=== PATIENT | female | born 1960 | race Caucasian/White ===

== ENCOUNTER 2019-05-25 09:33 | Inpatient (IN) | payer BC ==
[~2019-05-25 09:33] MED LIST: Bupivacaine 0.5%/EPINEPHrine 1:200,000 50 ML MDV ONE; Dexamethasone 4 MG/ML SDV ONE; Glycopyrrolate 0.2 MG/ML 5 ML MDV ONE; Meropenem 500 MG SDV ONE; Neostigmine Methylsulfate 1 MG/ML 5 ML Syringe ONE; Ondansetron 4 MG/2 ML SDV ONE; Propofol 200 MG/20 ML SDV ONE; Rocuronium 50 MG/5 ML Vial ONE; Succinylcholine 200 MG/10 ML MDV ONE; fentaNYL 250 MCG/5 ML SDV ONE
[2019-05-25] MEDS ORDERED: Celecoxib 200 MG Cap PO ONE (10:00)
[2019-05-25] MEDS ORDERED: Acetaminophen 500 MG Tab PO ONE (10:00)
[2019-05-25] MEDS ORDERED: Dextrose 5%-Lactated Ringers 1,000 ML IV SCH (10:15)
[2019-05-25] MEDS ORDERED: Scopolamine 1.5 MG Transdermal Patch TOP SCH (10:30)
[2019-05-25] MEDS ORDERED: Bupivacaine 0.5% 50 ML MDV ONE (10:54)
[2019-05-25] MEDS ORDERED: Lidocaine 1% with EPINEPHrine 1:100,000 50 ML MDV ONE (10:54)
[2019-05-25] MEDS ORDERED: cefOXitin 2 GM in Sodium Chloride 0.9% 50 ML IV ONE (11:00)
[2019-05-25] MEDS ORDERED: Ketamine 500 MG/5 ML MDV IV SCH (11:30)
[2019-05-25] MEDS ORDERED: Ketamine 50 MG in Sodium Chloride 0.9% 49.5 ML IV SCH (11:30)
[2019-05-25] MEDS ORDERED: Ropivacaine 28 ML, dexAMETHasone 8 MG, EPINEPHrine 0.4 MG, Sodium Chloride 0.9% 49.6 ML NERVRT SCH ×4 (11:30)
[2019-05-25] MEDS ORDERED: fentaNYL 100 MCG/2 ML SDV ONE (13:16)
[2019-05-25] MEDS ORDERED: diphenhydrAMINE 25 MG Cap PO PRN (14:05)
[2019-05-25] MEDS ORDERED: Ondansetron 4 MG/2 ML SDV IVPUSH PRN (14:05)
[2019-05-25] MEDS ORDERED: HYDROmorphone/Normal Saline 15 MG/30 ML PCA IV PRN (14:05)
[2019-05-25] MEDS ORDERED: diphenhydrAMINE 50 MG/ML SDV IVPUSH PRN ×2 (14:05→14:45)
[2019-05-25] MEDS ORDERED: Naloxone 0.4 MG/ML SDV IVPUSH PRN (14:05)
[2019-05-25] MEDS ORDERED: Naloxone 0.4 MG/ML SDV IV PRN (14:08)
[2019-05-25] MEDS ORDERED: Insulin Lispro 100 Unit/ML 3 ML KwikPen SUBCUT ONE (14:24)
[2019-05-25] MEDS ORDERED: 50% Dextrose in Water 50 ML Syringe IVPUSH PRN (14:45)
[2019-05-25] MEDS ORDERED: Pantoprazole 40 MG Vial IVPUSH SCH (14:45)
[2019-05-25] MEDS ORDERED: Glucagon,Human Recombinant 1 MG Vial IM PRN (14:45)
[2019-05-25] MEDS ORDERED: Labetalol 20 MG/4 ML Syringe IVPUSH PRN (14:45)
[2019-05-25] MEDS ORDERED: Acetaminophen 500 MG Tab PO PRN (14:45)
[2019-05-25] MEDS ORDERED: Cyclobenzaprine 10 MG Tab PO PRN (14:45)
[2019-05-25] MEDS ORDERED: hydrOXYzine HCL 100 MG/2 ML SDV IM PRN (14:45)
[2019-05-25] MEDS: Ondansetron 4 MG/2 ML SDV IVPUSH PRN ×2 (15:28→19:47)
[2019-05-25] MEDS: Metoclopramide 10 MG/2 ML SDV IVPUSH PRN ×2 (15:28→21:48)
[2019-05-25] MEDS ORDERED: Scopolamine 1.5 MG Transdermal Patch TRDERM PRN (15:45)
[2019-05-25] MEDS: Pantoprazole 40 MG Vial IVPUSH SCH (15:55)
[2019-05-25] MEDS: MVI, Adult with Vitamin K 10 ML, Thiamine 200 MG, Chromium/Copper/Mang/Selen/Zn 1 ML in... IV SCH ×4 (15:56)
[2019-05-25] MEDS: Insulin Lispro 100 Unit/ML 3 ML KwikPen SUBCUT PRN ×2 (16:56→22:08)
[2019-05-25] MEDS: Acetaminophen 500 MG Tab PO SCH (17:23)
[2019-05-25] MEDS: cefOXitin 2 GM in Sodium Chloride 0.9% 50 ML IV SCH (17:25)
[2019-05-25] MEDS ORDERED: Insulin Glargine,Human Rec. Analog 100 Units/ML 3 ML Pen SUBCUT ONE (21:00)
[2019-05-26] MEDS: Ondansetron 4 MG/2 ML SDV IVPUSH PRN ×4 (00:02→12:56)
[2019-05-26] MEDS: cefOXitin 2 GM in Sodium Chloride 0.9% 50 ML IV SCH ×5 (00:03→23:58)
[2019-05-26] MEDS: Lactated Ringers 1,000 ML IV SCH ×2 (03:46→16:38)
[2019-05-26] MEDS ORDERED: Iopamidol 612 MG/ML 50 ML SDV PO ONE (04:00)
[2019-05-26] MEDS: Acetaminophen 500 MG Tab PO SCH ×3 (04:16→17:39)
[2019-05-26] MEDS: Metoclopramide 10 MG/2 ML SDV IVPUSH PRN ×4 (04:19→21:42)
[2019-05-26] MEDS: Insulin Lispro 100 Unit/ML 3 ML KwikPen SUBCUT PRN ×4 (04:30→21:48)
--- NOTE | 2019-05-26 04:43 | CRLCR ---
Indication: Post bariatric surgery Technique: Two frontal images of the abdomen obtained immediately post ingestion of oral contrast in the 50 minutes delayed. Comparison: None Findings/Impression: On 0 minute image, contrast is seen layering in the distal stomach. A small amount of contrast is also noted in the distal esophagus. On 15 minute image, there is transit of some of the gastric contrast material into the duodenum and proximal jejunum. No extraluminal contrast is seen. Surgical drain is noted in the right lower quadrant. Dictated by Oanh Blevins MD @ May 26 2019 4:38AM Signed by Dr. Oanh Blevins @ May 26 2019 4:43AM
[2019-05-26] MEDS: Dextrose 5%-Lactated Ringers 1,000 ML IV SCH (06:23)
[2019-05-26] MEDS: Celecoxib 200 MG Cap PO SCH ×2 (08:31→21:44)
[2019-05-26] MEDS: Magnesium Sulfate/Water 2 GM in Premix Bag 1 BAG IV SCH ×3 (09:45→21:47)
[2019-05-26] MEDS: MVI, Adult with Vitamin K 10 ML, Thiamine 200 MG, Chromium/Copper/Mang/Selen/Zn 1 ML in... IV SCH ×4 (16:04)
[2019-05-26] MEDS: Pantoprazole 40 MG Vial IVPUSH SCH (16:05)
[2019-05-26] MEDS ORDERED: Insulin Glargine,Human Rec. Analog 100 Units/ML 3 ML Pen SUBCUT ONE (21:00)
[2019-05-27] MEDS: Acetaminophen 500 MG Tab PO SCH ×3 (02:59→17:01)
[2019-05-27] MEDS: Magnesium Sulfate/Water 2 GM in Premix Bag 1 BAG IV SCH ×3 (03:00→15:13)
[2019-05-27] MEDS: Lactated Ringers 1,000 ML IV SCH ×2 (04:55→15:12)
[2019-05-27] MEDS: Dextrose 5%-Lactated Ringers 1,000 ML IV SCH (04:56)
[2019-05-27] MEDS: cefOXitin 2 GM in Sodium Chloride 0.9% 50 ML IV SCH ×3 (05:01→17:00)
[2019-05-27] MEDS: Insulin Lispro 100 Unit/ML 3 ML KwikPen SUBCUT PRN ×4 (05:05→21:52)
[2019-05-27] MEDS ORDERED: Lidocaine 1% with EPINEPHrine 1:100,000 50 ML MDV ONE (07:12)
[2019-05-27] MEDS ORDERED: Meropenem 500 MG SDV ONE (07:12)
[2019-05-27] MEDS ORDERED: Bupivacaine 0.5% 50 ML MDV ONE (07:12)
[2019-05-27] MEDS ORDERED: Propofol 200 MG/20 ML SDV ONE (07:28)
[2019-05-27] MEDS ORDERED: fentaNYL 100 MCG/2 ML SDV ONE (07:28)
[2019-05-27] MEDS ORDERED: Ropivacaine 30 ML, dexAMETHasone 8 MG, EPINEPHrine 0.4 MG, Sodium Chloride 0.9% 47.6 ML NERVRT SCH ×4 (07:30)
[2019-05-27] MEDS ORDERED: oxyCODONE 5 MG Tab PO PRN (08:37)
[2019-05-27] MEDS ORDERED: Cyanocobalamin (Vitamin B12) 1,000 MCG/ML SDV IM ONE (09:00)
[2019-05-27] MEDS: Celecoxib 200 MG Cap PO SCH ×2 (09:49→21:49)
[2019-05-27] MEDS: Docusate Sodium 100 MG Cap PO SCH ×2 (09:49→20:19)
[2019-05-27] MEDS: Bisacodyl 5 MG Tab PO SCH ×2 (09:49→20:20)
[2019-05-27] MEDS: MVI, Adult with Vitamin K 10 ML, Thiamine 200 MG, Chromium/Copper/Mang/Selen/Zn 1 ML in... IV SCH ×4 (16:15)
[2019-05-27] MEDS ORDERED: Pantoprazole 40 MG Tab.CR PO SCH (17:00)
[2019-05-27] MEDS ORDERED: Insulin Glargine,Human Rec. Analog 100 Units/ML 3 ML Pen SUBCUT ONE (21:00)
[2019-05-27] MEDS ORDERED: Metoclopramide 10 MG Tab PO PRN (21:20)
[2019-05-27] MEDS ORDERED: diphenhydrAMINE 25 MG Cap PO PRN (21:20)
[2019-05-27] MEDS ORDERED: Ondansetron 4 MG Tab.DIS PO PRN (21:21)
[2019-05-28] MEDS: Acetaminophen 500 MG Tab PO SCH ×2 (06:28→09:02)
[2019-05-28] MEDS: Insulin Lispro 100 Unit/ML 3 ML KwikPen SUBCUT PRN (07:32)
[2019-05-28 07:41] VITALS: BP 117/63; PULSE 85
--- NOTE | 2019-05-28 07:51 | DISCH ---
ADMISSION DIAGNOSES: 1. Partial small bowel obstruction. 2. Type 1 diabetes with insulin therapy, controlled. DISCHARGE DIAGNOSES: 1. Exploratory laparotomy with lysis of adhesions: a. Resection of small bowel anastomosis involved in intussusception. b. Right colectomy. c. Excision of nodule over sigmoid colon. d. Placement of Interceed mesh for partial small bowel obstruction secondary to intussusception of the small bowel of previous anastomosis. 2. Cecal volvulus. 3. Peritoneal nodule 1 cm over sigmoid colon. Date of surgery: 05/25/2019. Surgeon: Patric Ji MD. 4. Delayed primary closure for open abdominal incision on 05/27/2019. Surgeon: Patric Ji MD. HISTORY: Nydia Faustin is a 59-year-old female who presented with a partial small bowel obstruction. After preoperative evaluation and discussion of possible risks and possible complications, she wished to proceed with surgical procedure. HOSPITAL COURSE: Nydia had her surgery on 05/25/2019 with delayed primary closure on 05/27/2019. She had no operative complications. Her pain was controlled. Activity was good. Vital signs were stable. She had multiple bowel movements on 05/27/2019. Nydia was able to be discharged to home on 05/28/2019 without any complications. PHYSICAL EXAMINATION: GENERAL: Nydia Faustin is a pleasant 59-year-old female. VITAL SIGNS: Height is 5 feet 1 inch, weight is 125 pounds. TPR on 05/27/2019 at 2238, 99.5; 86; 15; blood pressure 127/57. HEENT: Negative. NECK: Supple. HEART: Regular rate and rhythm. LUNGS: Clear. ABDOMEN: Aquacel dressing is intact. Abdominal binder is on. EXTREMITIES: Without peripheral edema. DISPOSITION: Discharged to home. CONDITION: Stable and improving. FOLLOWUP: Appointment with Rayna Rivas PA-C, on 06/05/2019 at 9:15 a.m. HOME MEDICATIONS: 1. Tylenol Extra Strength 1000 mg every 8 hours. 2. Celebrex 200 mg oral twice daily, #28. 3. Zofran ODT 4 mg oral q.4 hours p.r.n. nausea. 4. Oxycodone 5 mg every 6 hours p.r.n. pain, #28. 5. To resume taking insulin NovoLog 0 to 15 units subcu as directed and Basaglar 16 units subcu at bedtime. DIET: Usual diet as tolerated. Drink 8 to 10 glasses of water a day. ACTIVITY: No lifting over 10 pounds for 4 weeks. Other activity: Walk at least 6 times daily inside your house. No treadmill. Driving: Do not drive for 1 week and while on pain medication. Shower/bathing: May shower. DISCHARGE INSTRUCTIONS: Notify provider if any fever, increased pain, nausea, vomiting. Keep site clean and dry. Wear abdominal binder for 6 weeks and then as tolerated. Take off Aquacel dressing on , 05/31/2019. Special instructions: Use incentive spirometer 10 times every hour while awake for 1 week. Call Surgery Department if any problems or concerns at [phone].
[2019-05-28] MEDS: Docusate Sodium 100 MG Cap PO SCH (08:53)
[2019-05-28] MEDS: Bisacodyl 5 MG Tab PO SCH (08:53)
[2019-05-28] MEDS: Celecoxib 200 MG Cap PO SCH (08:54)
--- NOTE | 2019-05-28 11:48 | OR ---
DATE OF PROCEDURE: 05/27/2019 SURGEON: Patric Ji MD PREOPERATIVE DIAGNOSIS: Open abdominal incision. POSTOPERATIVE DIAGNOSIS: Open abdominal incision. OPERATIVE PROCEDURE: Delayed primary closure of open abdominal incision. ANESTHESIA: Local plus IV sedation. INDICATIONS FOR PROCEDURE: The patient is 48 hours status post open laparotomy with small bowel resection along with a right colectomy. At that time, it was felt that primary closure would be at high risk for a wound infection. Given this, the wound was packed open for a planned delayed primary closure at this time. Potential risks including bleeding and infection were reviewed, and the patient wishes to proceed. DETAILS OF PROCEDURE: The patient was taken to the operating room and placed in a semi- sitting position. IV sedation was administered, after which the operative dressing was taken down and found to be clean. The abdomen was then prepped and draped and the incision anesthetized with 1% lidocaine mixed with Marcaine. The incision was closed with a layer of 3-0 Vicryl stitch deep and then elizabeth for the skin. Bilateral transversus abdominis plane blocks were then placed using ultrasound guidance and dressing applied. The patient was taken to the recovery room in satisfactory condition. There were no evident complications. Patric Ji MD /[id number]
--- NOTE | 2019-05-28 12:24 | PN ---
DATE OF SERVICE: 05/27/2019 The patient has been clinically stable overnight. Blood sugars showing a little bit high. We will move her Lantus dose slightly up to 20 units from 16 units previously. Otherwise, she will be undergoing a delayed primary closure of the abdominal incision later today. We will restart a diet, and we will switch her over to oral oxycodone for pain medicine and begin some bowel stimulation. She may be ready for discharge home tomorrow. Patric Ji MD /[id number]
--- NOTE | 2019-05-28 13:18 | PN ---
DATE OF SERVICE: 05/26/2019 The patient is postop day #1 small bowel resection along with right colectomy for small bowel volvulus and intussusception of the previous small bowel anastomosis. Clinically, she has done well overnight with no major problems noted. Urine output has been satisfactory. Labs look fairly good this morning. Blood sugars, given the type 1 diabetes, are somewhat up and down, and we will move her Lantus insulin dose up to her usual 16 units tonight, and then we are more or less having her tell us what to do in terms of NovoLog coverage before the measured blood sugars. We will keep her just on sips of liquids for today. Plan is delayed primary closure tomorrow. She was somewhat nauseated last night, but upper GI x-ray was obtained, which showed fairly good gastric emptying and flow across the anastomosis of the small bowel, which is just beyond the ligament of Treitz. Otherwise, maximize activity, work with pulmonary toilet. We will soon switch her IV to simply LR at this point, and low magnesium level will be supplemented over the next 48 hours. Patric Ji MD /[id number]
--- NOTE | 2019-06-04 13:09 | OR ---
DATE OF PROCEDURE: 05/25/2019 SURGEON: Patric Ji MD PREOPERATIVE DIAGNOSIS: Partial small bowel obstruction. POSTOPERATIVE DIAGNOSES: 1. Partial small bowel obstruction secondary to intussusception at previous small bowel anastomosis. 2. Cecal volvulus. 3. Peritoneal nodule overlying the sigmoid colon. OPERATIVE PROCEDURE: Exploratory laparotomy with lysis of adhesions and: 1. Resection of small bowel anastomosis involving intussusception (05737). 2. Right colectomy (90534). 3. Excision of nodule overlying the sigmoid colon (61142). 4. Placement of Interceed mesh to limit recurrent adhesion formation between pelvic and abdominal wall and underlying viscera (07963). ANESTHESIA: General. PAPER BUNDLER: Rayna Rivas PA-C. INDICATIONS FOR PROCEDURE: The patient presents with a picture of intermittent small-bowel obstruction. Plan is to proceed with limited laparotomy and lysis of adhesions and/or bowel resection as indicated. Potential risks of the procedure including bleeding and leaks from GI tract closures, problems with recurrence of the bowel obstruction over time as well as possible recurrent cardiopulmonary, septic, or hemorrhagic complications leading to were all discussed, and the patient wishes to proceed. DETAILS OF PROCEDURE: The patient was taken to the operating room, and after general endotracheal anesthesia was induced, Jarquin catheter was inserted and the abdomen prepped and draped. Midline incision from the umbilicus roughly a handsbreadth toward the xiphoid was made and carried down through the full-thickness of the abdominal wall. Upon entering the peritoneal cavity, 3 significant findings were identified, one was very boggy enteroenterostomy likely related to intussusception was identified at previous small bowel anastomosis. The patient also had a cecal volvulus with cecum being rotated upward and into the left upper quadrant and quite distended partial small-bowel obstruction related to that. There is also a 1 cm firm nodule overlying the sigmoid colon more or less on one of its appendix epiploica. This was excised and sent for histologic evaluation. At that point, the decision was made to proceed with a right colectomy for cecal volvulus and resection of the small bowel anastomosis. At that point, the point where the Angela limb entered the small bowel anastomosis was divided and decided to leave that remaining anastomosis intact as it would only be carrying the biliopancreatic secretions. Secondary anastomosis was then accomplished roughly 20 cm distal to that point with a [id number] enteroenterostomy between the Angela limb and the small bowel with the 60 mm internal firing followed by 60 mm closure of the common opening. Angles anastomosed and reinforced with 3-0 Vicryl stitch and the mesenteric defect closed with some 2-0 silk stitch. The distal small bowel was then divided with MASON stapler as was the proximal transverse colon. The peritoneal reflection of the cecum, ascending colon, and transverse colon were then divided and those structures were mobilized medially with care taken to avoid injury to the underlying layer of duodenum. The mesentery between the 2 divided points was then divided with MASON staplers as well and specimen delivered from the field. The ileocolic anastomosis was then accomplished with 2 internal firings of 60 mm MASON elizabeth followed by closure of the common opening with MASON elizabeth as well. Angles anastomosed were reinforced with 3-0 Vicryl stitch and the mesenteric defect closed with some 2-0 silk stitch. At that point, no further problems were noted. The abdomen was irrigated with an antibiotic- containing saline solution. Interceed mesh was then placed across the area underlying the incision and then down toward the pelvis to limit the adhesion formation between the pelvic and abdominal wall. Midline fascia was then approximated with #2 Vicryl stitch, the subcutaneous tissue with 2 layers of 3-0 and 4-0 Vicryl stitch deep and elizabeth for the skin. Dressing was applied. The patient was taken to the recovery room in satisfactory condition. There were no evident complications. Physician assistant fitness manager, Rayna Rivas, played an essential role in assisting in this case, helping to position the patient, retract structures as needed, as well as suturing and cutting sutures when indicated. Her presence improved the patient's safety and decreased the operative time. Patric Ji MD /[id number]
== END 2019-05-28 09:50 | disposition home or self-care (01) | DRG 221 ==
LOC: JP.SDS 09:33 → JP.MS 14:30
PROVIDERS: ADMIT Surgery; ATTEND Surgery
PROC: 0DB80ZZ Excision of Small Intestine, Open Approach (ICD-10-PCS; principal; 2019-05-25)
PROC: 0DBF0ZZ Excision of Right Large Intestine, Open Approach (ICD-10-PCS; 2019-05-25)
PROC: 3E0M05Z Introduction of Adhesion Barrier into Peritoneal Cavity, Open Approach (ICD-10-PCS; 2019-05-25)
DX: K56.600 Partial intestinal obstruction, unspecified as to cause (principal); E10.9 Type 1 diabetes mellitus without complications; K56.2 Volvulus; K56.1 Intussusception
CPT/HCPCS: 36415; 74240; 80053; 82962; 83735; 83880; 84100; 85025; 88304; 88307; 94762; A9270-GY; C9113; J0171; J0330; J0694; J1100; J1170; J1790; J1815; J1815-GY; J2185; J2405; J2704; J2710; J2765; J2795; J3010; J3411; J3420; J3475; J3490; J7050; J7120; J7121; Q9967

== ENCOUNTER 2019-06-27 09:28 | Inpatient (IN) | payer BC ==
[2019-06-27] MEDS ORDERED: HYDROmorphone 0.5 MG/0.5 ML Syringe IVPUSH ONE (09:51)
[2019-06-27] MEDS ORDERED: Ondansetron 4 MG/2 ML SDV IVPUSH ONE (09:51)
[2019-06-27] MEDS ORDERED: Sodium Chloride 0.9% 1,000 ML IV SCH ×2 (10:00→12:15)
--- NOTE | 2019-06-27 10:00 | EDM.PDOC ---
ED HPI GENERAL MEDICAL PROBLEM - General Chief Complaint: Abdominal Pain Stated Complaint: POST-OP ISSUES Time Seen by Provider: 06/27/19 09:52 Source of Information: Reports: Patient History Limitations: Reports: No Limitations - History of Present Illness INITIAL COMMENTS - FREE TEXT/NARRATIVE: pt arrived with pain in her upper abdoman. She states it started last nite and was worse this am. She has not had a bm for 2 days. She is passing gas. She does not think she is distended. She is not vomiting but she has slight nausea. Onset: Gradual, Other ( started last nite. ) Duration: Hour(s): Location: Reports: Abdomen, Other (pt had surgery for a bowel obstruction on May 25. ) Associated Symptoms: Reports: Other (pt has not had a bm for 2 days. She is passing gas. ) Left Upper Abdominal Pain Score (Numeric/FACES): 5 - Related Data Allergies Allergy/AdvReac Type Severity Reaction Status Date / Time No Known Allergies Allergy Verified 05/23/19 15:38 Home Meds: Home Meds Insulin Aspart [NovoLOG] 0 - 15 unit SQ ASDIRECTED 08/26/13 [History] Insulin Glargine,Hum.Rec.Anlog [Basaglar Kwikpen U-100] 16 unit SQ BEDTIME 06/26 [History] Acetaminophen [Tylenol Extra Strength] 1,000 mg PO Q8H tablet 05/28/19 [Rx] Celecoxib [CeleBREX] 200 mg PO BID #28 cap 05/28/19 [Rx] Ondansetron [Zofran ODT] 4 mg PO Q4H PRN #30 tab.dis 05/28/19 [Rx] oxyCODONE 5 mg PO Q6H PRN #28 tablet 05/28/19 [Rx] Past Medical History HEENT History: Reports: Impaired Vision Respiratory History: Reports: Croup Gastrointestinal History: Reports: Bowel Obstruction Genitourinary History: Reports: None SAMPLE CARD MAKER History: Reports: Ectopic , , Spontaneous Musculoskeletal History: Reports: Fracture Other Musculoskeletal History: jaw Endocrine/Metabolic History: Reports: Diabetes, Type I, IDDM Dermatologic History: Reports: None - Infectious Disease History Infectious Disease History: Reports: Chicken Pox, Measles, Mumps, Shingles - Past Surgical History Head Surgeries/Procedures: Reports: None HEENT Surgical History: Reports: Oral Surgery, Other (See Below) Other HEENT Surgeries/Procedures: history of jaw fracture Cardiovascular Surgical History: Reports: None Respiratory Surgical History: Reports: None GI Surgical History: Reports: Appendectomy, Cholecystectomy, Colonoscopy, EGD, Lysis of Adhesions, Small Bowel, Other (See Below) Female Surgical History: Reports: Section, D&C, Hysterectomy, Salpingo-Oophorectomy, Tubal Ligation Musculoskeletal Surgical History: Reports: Other (See Below) Other Musculoskeletal Surgeries/Procedures:: history of left knee surgery as a young adult, meniscus repair secondary to gymnastic injury Social & Family History - Family History Family Medical History: Noncontributory - Caffeine Use Caffeine Use: Reports: Coffee ED ROS GENERAL - Review of Systems Review Of Systems: See Below Constitutional: Reports: No Symptoms HEENT: Reports: No Symptoms Respiratory: Reports: No Symptoms Cardiovascular: Reports: No Symptoms Endocrine: Reports: No Symptoms GI/Abdominal: Reports: Abdominal Pain, Constipation, Other (pt thinks she has not been drinking enough fluid. ) : Reports: No Symptoms Musculoskeletal: Reports: No Symptoms ED EXAM, GI/ABD - Physical Exam Exam: See Below Text/Narrative:: pt arrived with a inctrese in her pain in the upper abdoman. She is not vomiting. She has not had stools for 2 days and she is passing gas. Exam Limited By: No Limitations General Appearance: Alert, Anxious, Mild Distress Ears: Normal TMs Nose: Normal Inspection Throat/Mouth: Normal Inspection Head: Atraumatic Neck: Normal Inspection Respiratory/Chest: No Respiratory Distress Cardiovascular: Regular Rate, Rhythm GI/Abdominal Exam: Tender, Other (pt has tenderness in the upper abdoman and the upper portion of the incision. ) (Female) Exam: Deferred Rectal (Female) Exam: Deferred Back Exam: Normal Inspection Extremities: Normal Inspection Neurological: Alert, Oriented, Normal Cognition Psychiatric: Anxious Course - Vital Signs Last Recorded V/S: Last Vital Signs Temp 36.4 C 06/27/19 09:39 Pulse 88 06/27/19 09:39 Resp 18 06/27/19 09:39 BP 130/80 06/27/19 09:39 Pulse Ox - Orders/Labs/Meds Orders: Active Orders 24 hr Category Date Time Status Sodium Chloride 0.9% [Normal Saline] 1,000 ml Med 06/27/19 10:00 Active IV ASDIRECTED Sodium Chloride 0.9% [Normal Saline] 1,000 ml Med 06/27/19 12:15 Ordered IV ASDIRECTED Sodium Chloride 0.9% [Normal Saline] 70 ml Med 06/27/19 10:45 Active IV ASDIRECTED Sodium Chloride 0.9% [Saline Flush] Med 06/27/19 10:43 Active 10 ml FLUSH ONETIME PRN Medication Orders Sodium Chloride (Normal Saline) 1,000 mls @ 999 mls/hr IV ASDIRECTED DANNI Last Admin: 06/27/19 10:29 Dose: 999 mls/hr Sodium Chloride (Normal Saline) 70 mls @ 3 mls/sec IV ASDIRECTED DANNI Stop: 06/27/19 13:00 Last Admin: 06/27/19 10:56 Dose: 3 mls/sec Sodium Chloride (Saline Flush) 10 ml FLUSH ONETIME PRN PRN Reason: per radiology protocol Last Admin: 06/27/19 10:56 Dose: 10 ml Labs: Laboratory Tests 06/27/19 06/27/19 06/27/19 Range/Units 10:01 10:01 10:01 WBC 6.1 (4.5-11.0) K/uL RBC 4.14 (3.30-5.50) M/uL Hgb 11.9 L (12.0-15.0) g/dL Hct 36.8 (36.0-48.0) % MCV 89 (80-98) fL MCH 29 (27-31) pg MCHC 32 (32-36) % Plt Count 191 (150-400) K/uL Neut % (Auto) 57 (36-66) % Lymph % (Auto) 24 (24-44) % Ward % (Auto) 15 H (2-6) % Eos % (Auto) 5 H (2-4) % Baso % (Auto) 0 (0-1) % Sodium 139 L (140-148) mmol/L Potassium 4.5 (3.6-5.2) mmol/L Chloride 102 (100-108) mmol/L Carbon Dioxide 28 (21-32) mmol/L Anion Gap 13.5 (5.0-14.0) mmol/L BUN 17 D (7-18) mg/dL Creatinine 0.7 (0.6-1.0) mg/dL Est Cr Clr Drug Dosing 66.10 mL/min Estimated GFR (MDRD) > 60 (>60) Glucose 175 H (74-106) mg/dL Calcium 8.4 L (8.5-10.1) mg/dL Total Bilirubin 0.4 (0.2-1.0) mg/dL AST 18 (15-37) U/L ALT 28 (12-78) U/L Alkaline Phosphatase 94 (46-116) U/L C-Reactive Protein 0.39 H (0.0-0.3) mg/dL Total Protein 6.3 L (6.4-8.2) g/dL Albumin 3.1 L (3.4-5.0) g/dL Globulin 3.2 (2.3-3.5) g/dL Albumin/Globulin Ratio 1.0 L (1.2-2.2) Urine Color (YELLOW) Urine Appearance (CLEAR) Urine pH (5.0-8.0) Ur Specific [place] (1.008-1.030) Urine Protein (NEGATIVE) mg/dL Urine Glucose (UA) (NEGATIVE) mg/dL Urine Ketones (NEGATIVE) mg/dL Urine Occult Blood (NEGATIVE) Urine Nitrite (NEGATIVE) Urine Bilirubin (NEGATIVE) Urine Urobilinogen (0.2-1.0) EU/dL Ur Leukocyte Esterase (NEGATIVE) Urine RBC (0-5) Urine WBC (0-5) Ur Epithelial Cells Amorphous Sediment Urine Bacteria Urine Mucus 06/27/19 Range/Units 10:11 WBC (4.5-11.0) K/uL RBC (3.30-5.50) M/uL Hgb (12.0-15.0) g/dL Hct (36.0-48.0) % MCV (80-98) fL MCH (27-31) pg MCHC (32-36) % Plt Count (150-400) K/uL Neut % (Auto) (36-66) % Lymph % (Auto) (24-44) % Ward % (Auto) (2-6) % Eos % (Auto) (2-4) % Baso % (Auto) (0-1) % Sodium (140-148) mmol/L Potassium (3.6-5.2) mmol/L Chloride (100-108) mmol/L Carbon Dioxide (21-32) mmol/L Anion Gap (5.0-14.0) mmol/L BUN (7-18) mg/dL Creatinine (0.6-1.0) mg/dL Est Cr Clr Drug Dosing mL/min Estimated GFR (MDRD) (>60) Glucose (74-106) mg/dL Calcium (8.5-10.1) mg/dL Total Bilirubin (0.2-1.0) mg/dL AST (15-37) U/L ALT (12-78) U/L Alkaline Phosphatase (46-116) U/L C-Reactive Protein (0.0-0.3) mg/dL Total Protein (6.4-8.2) g/dL Albumin (3.4-5.0) g/dL Globulin (2.3-3.5) g/dL Albumin/Globulin Ratio (1.2-2.2) Urine Color Yellow (YELLOW) Urine Appearance Clear (CLEAR) Urine pH 5.5 (5.0-8.0) Ur Specific [place] >= 1.030 (1.008-1.030) Urine Protein Negative (NEGATIVE) mg/dL Urine Glucose (UA) Negative (NEGATIVE) mg/dL Urine Ketones Negative (NEGATIVE) mg/dL Urine Occult Blood Negative (NEGATIVE) Urine Nitrite Negative (NEGATIVE) Urine Bilirubin Negative (NEGATIVE) Urine Urobilinogen 0.2 (0.2-1.0) EU/dL Ur Leukocyte Esterase Negative (NEGATIVE) Urine RBC Not seen (0-5) Urine WBC Not seen (0-5) Ur Epithelial Cells Few Amorphous Sediment Few Urine Bacteria Not seen Urine Mucus Few Meds: Medications Generic Name Dose Route Start Last Admin Trade Name Freq PRN Reason Stop Dose Admin Sodium Chloride 1,000 mls @ 999 mls/hr 06/27/19 10:00 06/27/19 10:29 Normal Saline IV 999 mls/hr ASDIRECTED DANNI Administration Sodium Chloride 70 mls @ 3 mls/sec 06/27/19 10:45 06/27/19 10:56 Normal Saline IV 06/27/19 13:00 3 mls/sec ASDIRECTED DANNI Administration Sodium Chloride 10 ml 06/27/19 10:43 06/27/19 10:56 Saline Flush FLUSH 10 ml ONETIME PRN Administration per radiology protocol Discontinued Medications Generic Name Dose Route Start Last Admin Trade Name Freq PRN Reason Stop Dose Admin Hydromorphone HCl 0.5 mg 06/27/19 09:51 06/27/19 10:31 Dilaudid IVPUSH 06/27/19 09:52 0.5 mg ONETIME ONE Administration Iopamidol 84 ml 06/27/19 10:43 06/27/19 10:56 Isovue-300 (61%) IV 06/27/19 10:44 84 ml ONETIME ONE Administration Ondansetron HCl 4 mg 06/27/19 09:51 06/27/19 10:34 Zofran IVPUSH 06/27/19 09:52 4 mg ONETIME ONE Administration - Re-Assessments/Exams Free Text/Narrative Re-Assessment/Exam: 06/27/19 12:08 lab work looks good. She had a cat scan of the abdoman and there appeared to be some inflamationm of the abdomanal wall. There was no sign of obstruction Departure - Departure Time of Disposition: 12:10 Disposition: Admitted As Inpatient 67 Condition: Fair Clinical Impression: Abdominal wall asymmetry, Dehydration, Constipation - Discharge Information Referrals: Nitin Talavera MD [Primary Care Provider] - Forms: ED Department Discharge Care Plan Goals: admit to Dr García Sepsis Event Note - Evaluation Sepsis Screening Result: No Definite Risk - Focused Exam Vital Signs: Vital Signs Temp Pulse Resp BP 06/27/19 09:39 36.4 C 88 18 130/80 Date Exam was Performed: 06/27/19 Time Exam was Performed: 12:02 - My Orders Last 24 Hours: My Active Orders 06/27/19 10:00 Sodium Chloride 0.9% [Normal Saline] 1,000 ml IV ASDIRECTED 06/27/19 10:43 Sodium Chloride 0.9% [Saline Flush] 10 ml FLUSH ONETIME PRN 06/27/19 10:45 Sodium Chloride 0.9% [Normal Saline] 70 ml IV ASDIRECTED 06/27/19 12:15 Sodium Chloride 0.9% [Normal Saline] 1,000 ml IV ASDIRECTED - Assessment/Plan Last 24 Hours: My Active Orders 06/27/19 10:00 Sodium Chloride 0.9% [Normal Saline] 1,000 ml IV ASDIRECTED 06/27/19 10:43 Sodium Chloride 0.9% [Saline Flush] 10 ml FLUSH ONETIME PRN 06/27/19 10:45 Sodium Chloride 0.9% [Normal Saline] 70 ml IV ASDIRECTED 06/27/19 12:15 Sodium Chloride 0.9% [Normal Saline] 1,000 ml IV ASDIRECTED
[2019-06-27] MEDS ORDERED: Sodium Chloride 0.9% 10 ML Syringe FLUSH PRN ×2 (10:43→13:32)
[2019-06-27] MEDS ORDERED: Iopamidol 612 MG/ML 500 ML Multipack Bottle IV ONE (10:43)
--- NOTE | 2019-06-27 11:40 | CT ---
Abdomen Pelvis w Cont CLINICAL HISTORY: Abdominal pain COMPARISON: 05/08/2019. TECHNIQUE: Transverse scans were obtained from the base of the lungs to the pubic symphysis following oral contrast and IV infusion of contrast.Auto dosage reduction and iterative reconstructiontechniques employed. FINDINGS: The lung bases are clear. The liver shows some mild intrahepatic biliary dilatation. This is likely related to patient's prior cholecystectomy. There is slightly enlarged at 18 cm in length. The spleen has a normal size and shape. Patient has had recent to the revision of gastric bypass surgery. There is some thickening of the anterior abdominal wall and rectus sheath. There is some stranding in the subcutaneous fat in the periumbilical region. This may simply represent postoperative changes. Some hemorrhage or infection is not excluded. There are no fluid collections identified to suggest abscess or focal hematoma. The pancreas has a normal contour. The adrenal glands appear normal bilaterally . The kidneys show no mass, stones or hydronephrosis. The ureters have a normal course and caliber. Bladder has normal contour The aorta has a normal contour. There is no suspicious retroperitoneal adenopathy. There is moderate fecal retention. IMPRESSION: Recent abdominal surgery for gastric bypass revision Thickening of the abdominis rectus muscle bilaterally. This may be postoperative changes but some hemorrhage or inflammation is not excluded. Abscess is not identified. Moderate fecal retention
--- NOTE | 2019-06-27 12:43 | PCM.HP.2 ---
H&P History of Present Illness - General Date of Service: 06/27/19 Admit Problem/Dx: Admission Diagnosis/Problem Admission Diagnosis/Problem Infection of skin Source of Information: Patient, Family, Provider, RN Notes Reviewed History Limitations: Reports: No Limitations - History of Present Illness Initial Comments - Free Text/Narative: Ms. Faustin is a 59-year-old woman who was admitted through the emergency department for further evaluation and management of abdominal pain and inflammation in the abdominal wall following surgery 1 month ago. With the initial surgery she was felt to have a bowel obstruction and did undergo partial resection of small bowel as well as large bowel. She had been doing well during the postoperative period until she developed increased abdominal pain in the left abdomen yesterday. Pain seems to be unrelated to eating but is associated with nausea. She has had no fevers, chills, or sweats. No vomiting or diarrhea. The skin of the abdomen pelvis showed possible inflammation of both abdominal rectus muscles, no obvious abscess. White blood cell count is within normal range. Left Upper Abdominal Pain Score (Numeric/FACES): 5 - Related Data Allergies/Adverse Reactions: Allergies Allergy/AdvReac Type Severity Reaction Status Date / Time No Known Allergies Allergy Verified 05/23/19 15:38 Home Medications: Home Meds Insulin Aspart [NovoLOG] 0 - 15 unit SQ ASDIRECTED 08/26/13 [History] Insulin Glargine,Hum.Rec.Anlog [Basaglar Kwikpen U-100] 16 unit SQ BEDTIME 06/26 [History] Acetaminophen [Tylenol Extra Strength] 1,000 mg PO Q8H tablet 05/28/19 [Rx] Celecoxib [CeleBREX] 200 mg PO BID #28 cap 05/28/19 [Rx] Ondansetron [Zofran ODT] 4 mg PO Q4H PRN #30 tab.dis 05/28/19 [Rx] oxyCODONE 5 mg PO Q6H PRN #28 tablet 05/28/19 [Rx] Past Medical History HEENT History: Reports: Impaired Vision Respiratory History: Reports: Croup Gastrointestinal History: Reports: Bowel Obstruction Genitourinary History: Reports: None [employer] History: Reports: Ectopic , , Spontaneous Musculoskeletal History: Reports: Fracture Other Musculoskeletal History: jaw Endocrine/Metabolic History: Reports: Diabetes, Type I, IDDM Dermatologic History: Reports: None - Infectious Disease History Infectious Disease History: Reports: Chicken Pox, Measles, Mumps, Shingles - Past Surgical History Head Surgeries/Procedures: Reports: None HEENT Surgical History: Reports: Oral Surgery, Other (See Below) Other HEENT Surgeries/Procedures: history of jaw fracture Cardiovascular Surgical History: Reports: None Respiratory Surgical History: Reports: None GI Surgical History: Reports: Appendectomy, Cholecystectomy, Colonoscopy, EGD, Lysis of Adhesions, Small Bowel, Other (See Below) Female Surgical History: Reports: Section, D&C, Hysterectomy, Salpingo-Oophorectomy, Tubal Ligation Musculoskeletal Surgical History: Reports: Other (See Below) Other Musculoskeletal Surgeries/Procedures:: history of left knee surgery as a young adult, meniscus repair secondary to gymnastic injury Social & Family History - Family History Family Medical History: Noncontributory - Tobacco Use Smoking Status *Q: Never Smoker - Caffeine Use Caffeine Use: Reports: Coffee - Recreational Drug Use Recreational Drug Use: No H&P Review of Systems - Review of Systems: Review Of Systems: See Below General: Reports: Decreased Appetite. Denies: Fever, Chills, Malaise, Weakness HEENT: Reports: No Symptoms Pulmonary: Reports: No Symptoms Cardiovascular: Reports: No Symptoms Gastrointestinal: Reports: Abdominal Pain, Decreased Appetite, Nausea. Denies: Diarrhea, Difficulty Swallowing, Distension, Hematemesis, Hematochezia, Melena, Vomiting Genitourinary: Reports: No Symptoms Musculoskeletal: Reports: No Symptoms Skin: Reports: No Symptoms Psychiatric: Reports: No Symptoms Neurological: Reports: No Symptoms Hematologic/Lymphatic: Reports: No Symptoms Immunologic: Reports: No Symptoms Exam - Exam Exam: See Below - Vital Signs Vital Signs: Last Vital Signs Temp 97.6 F 06/27/19 09:39 Pulse 75 06/27/19 12:26 Resp 18 06/27/19 12:26 BP 112/74 06/27/19 12:26 Pulse Ox 95 06/27/19 12:26 Weight: 123 lb 7.342 oz - Exam Quality Assessment: Supplemental Oxygen, DVT Prophylaxis General: Alert, Oriented, Cooperative, Mild Distress HEENT: Conjunctiva Clear, Hearing Intact, Mucosa Moist & [place], Normal Nasal Septum, Posterior Pharynx Clear, Pupils Equal Neck: Supple, Trachea Midline, +2 Carotid Pulse wo Bruit Lungs: Clear to Auscultation, Normal Respiratory Effort Cardiovascular: Regular Rate, Regular Rhythm, Normal S1, Normal S2. No: Systolic Murmur, Diastolic Murmur GI/Abdominal Exam: Soft, Non-Tender, No Organomegaly, No Distention Back Exam: Normal Inspection, Full Range of Motion Extremities: Non-Tender, No Pedal Edema Skin: Warm, Dry, Intact Neurological: Cranial Nerves Intact, Strength Equal Bilateral, Normal Speech, Normal Tone, Sensation Intact. No: Focal Deficit Neuro Extensive - Mental Status: Alert, Oriented x3, Normal Mood/Affect, Normal Cognition, Memory Intact - Patient Data Lab Results Last 24 hrs: Laboratory Results - last 24 hr 06/27/19 06/27/19 06/27/19 Range/Units 10:01 10:01 10:01 WBC 6.1 (4.5-11.0) K/uL RBC 4.14 (3.30-5.50) M/uL Hgb 11.9 L (12.0-15.0) g/dL Hct 36.8 (36.0-48.0) % MCV 89 (80-98) fL MCH 29 (27-31) pg MCHC 32 (32-36) % Plt Count 191 (150-400) K/uL Neut % (Auto) 57 (36-66) % Lymph % (Auto) 24 (24-44) % [place] % (Auto) 15 H (2-6) % Eos % (Auto) 5 H (2-4) % Baso % (Auto) 0 (0-1) % Sodium 139 L (140-148) mmol/L Potassium 4.5 (3.6-5.2) mmol/L Chloride 102 (100-108) mmol/L Carbon Dioxide 28 (21-32) mmol/L Anion Gap 13.5 (5.0-14.0) mmol/L BUN 17 D (7-18) mg/dL Creatinine 0.7 (0.6-1.0) mg/dL Est Cr Clr Drug Dosing 66.10 mL/min Estimated GFR (MDRD) > 60 (>60) Glucose 175 H (74-106) mg/dL Calcium 8.4 L (8.5-10.1) mg/dL Total Bilirubin 0.4 (0.2-1.0) mg/dL AST 18 (15-37) U/L ALT 28 (12-78) U/L Alkaline Phosphatase 94 (46-116) U/L C-Reactive Protein 0.39 H (0.0-0.3) mg/dL Total Protein 6.3 L (6.4-8.2) g/dL Albumin 3.1 L (3.4-5.0) g/dL Globulin 3.2 (2.3-3.5) g/dL Albumin/Globulin Ratio 1.0 L (1.2-2.2) Urine Color (YELLOW) Urine Appearance (CLEAR) Urine pH (5.0-8.0) Ur Specific [place] (1.008-1.030) Urine Protein (NEGATIVE) mg/dL Urine Glucose (UA) (NEGATIVE) mg/dL Urine Ketones (NEGATIVE) mg/dL Urine Occult Blood (NEGATIVE) Urine Nitrite (NEGATIVE) Urine Bilirubin (NEGATIVE) Urine Urobilinogen (0.2-1.0) EU/dL Ur Leukocyte Esterase (NEGATIVE) Urine RBC (0-5) Urine WBC (0-5) Ur Epithelial Cells Amorphous Sediment Urine Bacteria Urine Mucus 06/27/19 Range/Units 10:11 WBC (4.5-11.0) K/uL RBC (3.30-5.50) M/uL Hgb (12.0-15.0) g/dL Hct (36.0-48.0) % MCV (80-98) fL MCH (27-31) pg MCHC (32-36) % Plt Count (150-400) K/uL Neut % (Auto) (36-66) % Lymph % (Auto) (24-44) % [place] % (Auto) (2-6) % Eos % (Auto) (2-4) % Baso % (Auto) (0-1) % Sodium (140-148) mmol/L Potassium (3.6-5.2) mmol/L Chloride (100-108) mmol/L Carbon Dioxide (21-32) mmol/L Anion Gap (5.0-14.0) mmol/L BUN (7-18) mg/dL Creatinine (0.6-1.0) mg/dL Est Cr Clr Drug Dosing mL/min Estimated GFR (MDRD) (>60) Glucose (74-106) mg/dL Calcium (8.5-10.1) mg/dL Total Bilirubin (0.2-1.0) mg/dL AST (15-37) U/L ALT (12-78) U/L Alkaline Phosphatase (46-116) U/L C-Reactive Protein (0.0-0.3) mg/dL Total Protein (6.4-8.2) g/dL Albumin (3.4-5.0) g/dL Globulin (2.3-3.5) g/dL Albumin/Globulin Ratio (1.2-2.2) Urine Color Yellow (YELLOW) Urine Appearance Clear (CLEAR) Urine pH 5.5 (5.0-8.0) Ur Specific [place] >= 1.030 (1.008-1.030) Urine Protein Negative (NEGATIVE) mg/dL Urine Glucose (UA) Negative (NEGATIVE) mg/dL Urine Ketones Negative (NEGATIVE) mg/dL Urine Occult Blood Negative (NEGATIVE) Urine Nitrite Negative (NEGATIVE) Urine Bilirubin Negative (NEGATIVE) Urine Urobilinogen 0.2 (0.2-1.0) EU/dL Ur Leukocyte Esterase Negative (NEGATIVE) Urine RBC Not seen (0-5) Urine WBC Not seen (0-5) Ur Epithelial Cells Few Amorphous Sediment Few Urine Bacteria Not seen Urine Mucus Few Result Diagrams: 06/27/19 10:01 06/27/19 10:01 Sepsis Event Note - Evaluation Sepsis Screening Result: No Definite Risk - Focused Exam Vital Signs: Vital Signs Temp Pulse Resp BP Pulse Ox 06/27/19 12:26 75 18 112/74 95 06/27/19 09:39 97.6 F 88 18 130/80 Date Exam was Performed: 06/27/19 Time Exam was Performed: 13:02 *Q Meaningful Use (ADM) - VTE Risk Assess *Q Each Risk Factor Represents 1 Point: Age 41 - 59 years Total Score 1 Point Risk Factors: 1 Each Risk Factor Represents 2 Points: None Total Score 2 Point Risk Factors: 0 Each Risk Factor Represents 3 Points: None Total Score 3 Point Risk Factors: 0 Each Risk Factor Represents 5 Points: None Total Score 5 Point Risk Factors: 0 Venous Thromboembolism Risk Factor Score *Q: 1 Problem List Initiated/Reviewed/Updated: Yes Orders Last 24hrs: Active Orders 24 hr Category Date Time Status Patient Status Manage Transfer [TRANSFER] Routine ADT 06/27/19 12:35 Ordered Sodium Chloride 0.9% [Normal Saline] 1,000 ml Med 06/27/19 10:00 Active IV ASDIRECTED Sodium Chloride 0.9% [Normal Saline] 1,000 ml Med 06/27/19 12:15 Active IV ASDIRECTED Sodium Chloride 0.9% [Normal Saline] 70 ml Med 06/27/19 10:45 Active IV ASDIRECTED Sodium Chloride 0.9% [Saline Flush] Med 06/27/19 10:43 Active 10 ml FLUSH ONETIME PRN Resuscitation Status Routine Resus Stat 06/27/19 12:37 Ordered Medication Orders Sodium Chloride (Normal Saline) 1,000 mls @ 999 mls/hr IV ASDIRECTED [facility] Last Admin: 06/27/19 10:29 Dose: 999 mls/hr Sodium Chloride (Normal Saline) 70 mls @ 3 mls/sec IV ASDIRECTED [facility] Stop: 06/27/19 13:00 Last Admin: 06/27/19 10:56 Dose: 3 mls/sec Sodium Chloride (Normal Saline) 1,000 mls @ 250 mls/hr IV ASDIRECTED [facility] Last Admin: 06/27/19 11:55 Dose: 250 mls/hr Sodium Chloride (Saline Flush) 10 ml FLUSH ONETIME PRN PRN Reason: per radiology protocol Last Admin: 06/27/19 10:56 Dose: 10 ml Assessment/Plan Comment:: ASSESSMENT AND PLAN ABDOMINAL PAIN/ABDOMINAL WALL INFLAMMATION-been doing well after surgery 1 month ago when she developed more acute intense pain in the left abdomen. CT scan shows no intra-abdominal abnormality to explain pain. There is some evidence of inflammation in the abdominal wall but no obvious abscess or hematoma. -Consult Dr. Ji in a.m. to assume care -Fluids for hydration -Blood cultures -Empiric IV antibiotic therapy with vancomycin and Zosyn TYPE 1 DIABETES MELLITUS -Continue usual dose of Lantus insulin -4 times daily glucometers -Moderate dose sliding scale Humalog MAINTENANCE ISSUES -DVT prophylaxis; SCUDs -GI prophylaxis; not indicated -Jarquin catheter; not indicated -Nutrition; consistent carb diet -Nicotine dependence; not required CODE STATUS-FULL CODE ADMISSION STATUS-patient will be admitted to inpatient status, expect at least a 2 night hospital stay for evaluation and management of problems as outlined above. At the time of this admission I do not reasonably expected evaluation and management of this problem will require more than a 96 hour hospital stay. DISPOSITION-anticipate discharge to home after the hospital stay. PRIMARY CARE PROVIDER-Drs. Talavera - Mortality Measure Prognosis:: Good
[2019-06-27] MEDS ORDERED: oxyCODONE 5 MG Tab PO PRN (13:32)
[2019-06-27] MEDS ORDERED: 50% Dextrose in Water 50 ML Syringe IV PRN (13:32)
[2019-06-27] MEDS ORDERED: Ondansetron 4 MG Tab.DIS PO PRN (13:32)
[2019-06-27] MEDS ORDERED: Polyethylene Glycol 3350 Powder 17 GM Packet PO PRN (13:32)
[2019-06-27] MEDS ORDERED: Glucose Gel 15 GM in 37.5 GM Tube PO PRN (13:32)
[2019-06-27] MEDS ORDERED: Ondansetron 4 MG/2 ML SDV IV PRN (13:32)
[2019-06-27] MEDS ORDERED: Vancomycin 1 GM SDV IV SCH (13:32)
[2019-06-27] MEDS ORDERED: Acetaminophen 325 MG Tab PO PRN (13:32)
[2019-06-27] MEDS ORDERED: Albuterol 0.083% 2.5 MG/3 ML Neb Soln NEB PRN (13:32)
[2019-06-27] MEDS: Lactated Ringers 1,000 ML IV SCH (13:55)
[2019-06-27] MEDS: Piperacillin/Tazobactam/Dext 3.375 GM in Premix Bag 1 BAG IV SCH ×2 (14:29→19:37)
[2019-06-27] MEDS: Insulin Lispro 100 Unit/ML 3 ML KwikPen SUBCUT SCH ×2 (17:03→21:56)
[2019-06-27] MEDS ORDERED: Insulin Glargine,Human Rec. Analog 100 Units/ML 3 ML Pen SUBCUT SCH (21:00)
[2019-06-28] MEDS: Lactated Ringers 1,000 ML IV SCH (00:32)
[2019-06-28] MEDS: Piperacillin/Tazobactam/Dext 3.375 GM in Premix Bag 1 BAG IV SCH ×4 (02:56→19:39)
[2019-06-28] MEDS ORDERED: Dextrose 5%-Lactated Ringers 1,000 ML IV SCH (05:30)
[2019-06-28] MEDS: Insulin Lispro 100 Unit/ML 3 ML KwikPen SUBCUT SCH ×4 (07:35→21:17)
--- NOTE | 2019-06-28 08:46 | CONS ---
DATE OF SERVICE: 06/28/2019 REFERRING PHYSICIAN: CONSULTING PHYSICIAN: Rayna Rivas PA-C HISTORY OF PRESENT ILLNESS: Nydia had an exploratory laparotomy with lysis of adhesions, resection of small bowel anastomosis involved in intussusception, right colectomy, excision of nodule over sigmoid colon and placement of Interceed mesh for cecal small-bowel obstruction secondary to intussusception of the small bowel, previous anastomosis. She had a cecal volvulus, peritoneal nodule 1 cm over the sigmoid colon. Date of surgery was 05/25/2019. Surgeon: Patric Ji MD. Delayed primary closure for open incision was on 05/27/2019. Nydia had a normal postop progression until 06/26/2019. She developed pain to the left of her mid incision. She felt like the area was hard, painful to touch and felt warm. Pain is aggravated by movement or palpation. Eating and drinking have been going well. Bowel movement was a couple of days ago. She states that she has no other associated signs or symptoms. ALLERGIES: NO KNOWN MEDICAL ALLERGIES. PAST MEDICAL HISTORY: Includes ectopic ; diabetes type 1, insulin-dependent diabetes; and several bowel obstructions. PAST SURGICAL PROCEDURES: Include her most recent as noted above, appendectomy, cholecystectomy, lysis of adhesions of small bowel, , hysterectomy, salpingo- oophorectomy, tubal ligation, and left knee surgery with meniscus repair. MEDICATIONS: NovoLog 0 to 15 units subcu as directed; Basaglar U-100, 16 units subcu at bedtime; acetaminophen 1000 mg every 8 hours; Zofran 4 mg sublingual every 4 hours p.r.n. nausea. FAMILY HISTORY: Negative for any heart, lung, diabetes, cancer, or anesthesia problems. SOCIAL HISTORY: . Works at a local [employer]. Does not smoke or drink alcohol. No recreational drugs. Does drink coffee. REVIEW OF SYSTEMS: CONSTITUTIONAL: Reports decreased appetite, but that has improved. She does not think it has anything to do with the pain she is having now. No fever, chills, night sweats, or fatigue. HEENT: Negative for any upper respiratory infections, ear pain, or sore throat. LUNGS: No shortness of breath or cough. CARDIOVASCULAR: No chest pain, fast irregular heart beat. GENITOURINARY: Negative for any urinary tract infection signs and symptoms. MUSCULOSKELETAL: No joint pain or swelling. SKIN: No rash, changes in moles. PSYCHIATRIC: Negative for depression, anxiety. NEUROLOGIC: No headaches, dizziness, loss of coordination. Remainder of review of systems negative for any pertinent positives and negatives. OBJECTIVE: GENERAL: Nydia Faustin is a pleasant 59-year-old female. VITAL SIGNS: Height is 5 feet 1 inch, weight is 127 pounds, BMI is 24. TPR at 07:42, 96.6; 82; 16; blood pressure 118/74. HEENT: Negative. NECK: Supple. HEART: Regular rate and rhythm. LUNGS: Clear. ABDOMEN: Well-healed midline incision. Tenderness is noted superficially to the left of the mid incision. Area is about 4 inches x 4 inches. Little bit tenderness is noted laterally as well as her right mid to upper abdominal quadrant. There is no redness, warmth. Difficult to appreciate any firmness other than what would be expected from scar tissue. EXTREMITIES: Without peripheral edema. SKIN: Without rash. PSYCHIATRIC: Mood and affect appropriate. ASSESSMENT: 1. Abdominal wall pain/abdominal wall inflammation. 2. Diabetes mellitus type 1, low blood sugar this morning of 34. PLAN: Check ultrasound limited of abdomen. Continue Zosyn, vancomycin. Regular consistent carb diet. Ultrasound results to be called. We will evaluate p.r.n. or in a.m. Thank you for this consultation. Rayna Rivas PA-C /[phone]
--- NOTE | 2019-06-28 10:06 | US ---
Abdomen Ltd CLINICAL HISTORY: Abdominal pain postsurgery FINDINGS: Real-time images were obtained through the epigastric region to evaluate the abdominal wall. No fluid collections are identified. There is some thickening of the rectus sheath as was described on the recent CT near the previous surgical incision IMPRESSION: Rectus sheath thickening No abscess formation identified
--- NOTE | 2019-06-28 13:01 | PCM.PN ---
- General Info Date of Service: 06/28/19 Subjective Update: Ms. Faustin continues to experience abdominal pain, no significant improvement from admission but it also has not progressed. Vital signs have been stable and she has remained afebrile. She did eat last night and noted no change in her pain with oral intake. She has been seen and evaluated by Mrs. Rivas this morning, limited ultrasound was unremarkable. Functional Status: Reports: Tolerating Diet, Ambulating, Urinating - Review of Systems General: Reports: No Symptoms Pulmonary: Reports: No Symptoms Cardiovascular: Reports: No Symptoms Gastrointestinal: Reports: Abdominal Pain, Decreased Appetite, Nausea. Denies: Diarrhea, Difficulty Swallowing, Vomiting - Patient Data Vitals - Most Recent: Last Vital Signs Temp 97.5 F 06/28/19 10:54 Pulse 76 06/28/19 10:54 Resp 16 06/28/19 10:54 BP 130/62 06/28/19 10:54 Pulse Ox 97 06/28/19 10:54 Weight - Most Recent: 127 lb I&O - Last 24 Hours: Intake & Output 06/27/19 06/28/19 06/28/19 22:59 06:59 14:59 Intake Total 1850 1502 50 Balance 1850 1502 50 Lab Results Last 24 Hours: Laboratory Results - last 24 hr 06/28/19 06/28/19 Range/Units 04:55 04:55 WBC 5.6 (4.5-11.0) K/uL RBC 3.91 (3.30-5.50) M/uL Hgb 10.7 L (12.0-15.0) g/dL Hct 35.0 L (36.0-48.0) % MCV 90 (80-98) fL MCH 27 (27-31) pg MCHC 31 L (32-36) % Plt Count 181 (150-400) K/uL Neut % (Auto) 56 (36-66) % Lymph % (Auto) 23 L (24-44) % [place] % (Auto) 16 H (2-6) % Eos % (Auto) 5 H (2-4) % Baso % (Auto) 0 (0-1) % Sodium 144 (140-148) mmol/L Potassium 3.8 (3.6-5.2) mmol/L Chloride 107 (100-108) mmol/L Carbon Dioxide 28 (21-32) mmol/L Anion Gap 9.2 (5.0-14.0) mmol/L BUN 12 (7-18) mg/dL Creatinine 0.6 (0.6-1.0) mg/dL Est Cr Clr Drug Dosing 77.12 mL/min Estimated GFR (MDRD) > 60 (>60) Glucose 38 L* (74-106) mg/dL Calcium 8.0 L (8.5-10.1) mg/dL Magnesium 1.9 (1.8-2.4) mg/dL Med Orders - Current: Current Medications Acetaminophen (Tylenol) 650 mg PO Q4H PRN PRN Reason: Pain (Mild 1-3)/fever Albuterol (Proventil Neb Soln) 2.5 mg NEB Q4H PRN PRN Reason: Shortness Of Breath/wheezing Dextrose (Glutose 15) 15 gm PO ONETIME PRN PRN Reason: Hypoglycemia Dextrose/Water (Dextrose 50% In Water) 50 ml IV ONETIME PRN PRN Reason: Hypoglycemia Last Admin: 06/28/19 05:27 Dose: 50 ml Piperacillin/Tazobactam/ (Dextrose 3.375 gm/ Premix) 50 mls @ 100 mls/hr IV Q6H [facility] Last Admin: 06/28/19 09:03 Dose: 100 mls/hr Vancomycin HCl 1 gm/ Sodium (Chloride) 250 mls @ 170 mls/hr IV Q12H [facility] Last Admin: 06/28/19 03:45 Dose: 170 mls/hr Insulin Glargine (Lantus Solostar) 12 units SUBCUT BEDTIME [facility] Insulin Human Lispro (Humalog) 0 unit SUBCUT QIDACANDBED [facility]; Protocol Last Admin: 06/28/19 11:48 Dose: 4 units Ondansetron HCl (Zofran Odt) 4 mg PO Q4H PRN PRN Reason: Nausea/Vomiting Ondansetron HCl (Zofran) 4 mg IV Q4H PRN PRN Reason: Nausea/Vomiting Oxycodone HCl (Oxycodone) 5 mg PO Q4H PRN PRN Reason: PAIN Polyethylene Glycol (Miralax) 17 gm PO DAILY PRN PRN Reason: Constipation Sodium Chloride (Saline Flush) 10 ml FLUSH ASDIRECTED PRN PRN Reason: Keep Vein Open Discontinued Medications Hydromorphone HCl (Dilaudid) 0.5 mg IVPUSH ONETIME ONE Stop: 06/27/19 09:52 Last Admin: 06/27/19 10:31 Dose: 0.5 mg Sodium Chloride (Normal Saline) 1,000 mls @ 999 mls/hr IV ASDIRECTED [facility] Last Admin: 06/27/19 10:29 Dose: 999 mls/hr Sodium Chloride (Normal Saline) 70 mls @ 3 mls/sec IV ASDIRECTED [facility] Stop: 06/27/19 13:00 Last Admin: 06/27/19 10:56 Dose: 3 mls/sec Sodium Chloride (Normal Saline) 1,000 mls @ 250 mls/hr IV ASDIRECTED [facility] Last Admin: 06/27/19 11:55 Dose: 250 mls/hr Lactated Ringer's (Ringers, Lactated) 1,000 mls @ 125 mls/hr IV ASDIRECTED [facility] Last Admin: 06/28/19 00:32 Dose: 125 mls/hr Dextrose/Lactated Ringer's (Dextrose 5%-Lactated Ringers) 1,000 mls @ 125 mls/ hr IV ASDIRECTED [facility] Last Admin: 06/28/19 05:33 Dose: 125 mls/hr Insulin Glargine (Lantus Solostar) 16 units SUBCUT BEDTIME [facility] Last Admin: 06/27/19 21:57 Dose: 16 units Iopamidol (Isovue-300 (61%)) 84 ml IV ONETIME ONE Stop: 06/27/19 10:44 Last Admin: 06/27/19 10:56 Dose: 84 ml Ondansetron HCl (Zofran) 4 mg IVPUSH ONETIME ONE Stop: 06/27/19 09:52 Last Admin: 06/27/19 10:34 Dose: 4 mg Sodium Chloride (Saline Flush) 10 ml FLUSH ONETIME PRN PRN Reason: per radiology protocol Last Admin: 06/27/19 10:56 Dose: 10 ml Vancomycin HCl (Vancomycin) 1 gm IV .PHARMACY TO DOSE [facility] Stop: 06/27/19 16:00 - Exam Quality Assessment: DVT Prophylaxis General: Alert, Oriented, Cooperative, Mild Distress Lungs: Clear to Auscultation, Normal Respiratory Effort Cardiovascular: Regular Rate, Regular Rhythm, No Murmurs GI/Abdominal Exam: Soft, No Organomegaly, Tender. No: Distended, Guarding, Rigid, Rebound Extremities: Non-Tender, No Pedal Edema Sepsis Event Note - Evaluation Sepsis Screening Result: No Definite Risk - Focused Exam Vital Signs: Vital Signs Temp Pulse Resp BP Pulse Ox 06/28/19 10:54 97.5 F 76 16 130/62 97 06/28/19 07:42 96.6 F L 82 16 118/74 96 06/28/19 02:57 97.9 F 80 16 117/48 L 92 L Date Exam was Performed: 06/28/19 Time Exam was Performed: 12:58 - Problem List Review Problem List Initiated/Reviewed/Updated: Yes - My Orders Last 24 Hours: My Active Orders 06/27/19 12:37 Resuscitation Status Routine 06/27/19 13:32 Patient Status [ADT] Routine Ambulate [RC] QID Blood Glucose Check, Bedside [RC] QIDACANDBED Diabetes Education [RC] Click to Edit Height and Weight [RC] 0500 Intake and Output [RC] QSHIFT Notify Provider Consults [RC] ASDIRECTED Notify Provider Vital Signs [RC] ASDIRECTED Notify Provider [RC] PRN Oxygen Therapy [RC] .PRN Peripheral IV Care [RC] Q12H RT Aerosol Therapy [RC] ASDIRECTED Up With Assistance [RC] ASDIRECTED Up to Chair [RC] QID VTE/DVT Education [RC] Per Unit Routine Vital Signs [RC] Q4H Consult to Physician [CONS] Routine Acetaminophen [Tylenol] 650 mg PO Q4H PRN Albuterol [Proventil Neb Soln] 2.5 mg NEB Q4H PRN Dextrose 50% in Water 50 ml IV ONETIME PRN Dextrose [Glutose 15] 15 gm PO ONETIME PRN Ondansetron [Zofran ODT] 4 mg PO Q4H PRN Ondansetron [Zofran] 4 mg IV Q4H PRN Sodium Chloride 0.9% [Saline Flush] 10 ml FLUSH ASDIRECTED PRN oxyCODONE 5 mg PO Q4H PRN polyethylene glycoL 3350 [MiraLAX] 17 gm PO DAILY PRN Blood Culture x2 Reflex Set [OM.PC] Urgent Peripheral IV Insertion Adult [OM.PC] Routine Sequential Compression Device [OM.PC] Per Unit Routine 06/27/19 13:40 CULTURE BLOOD [BC] Stat 06/27/19 13:48 CULTURE BLOOD [BC] Stat 06/27/19 14:00 Piperacillin/Tazobactam/Dext [Zosyn in Dextrose Iso-Osmotic 3.375 GM] 3.375 gm Premix Bag 1 bag IV Q6H 06/27/19 16:00 Vancomycin 1 gm Sodium Chloride 0.9% [Normal Saline] 250 ml IV Q12H 06/27/19 17:00 Insulin Lispro [HumaLOG] See Protocol SUBCUT QIDACANDBED 06/28/19 12:18 Convert IV to Saline Lock [OM.PC] Routine 06/28/19 16:30 GLUCOSE POC LAB TO COLLECT [POC] QIDACANDBED 06/28/19 21:00 GLUCOSE POC LAB TO COLLECT [POC] QIDACANDBED Insulin Glarg,Human.Rec.Analog [LantUS Solostar] 12 units SUBCUT BEDTIME 06/29/19 07:30 GLUCOSE POC LAB TO COLLECT [POC] QIDACANDBED 06/29/19 11:30 GLUCOSE POC LAB TO COLLECT [POC] QIDACANDBED 06/29/19 16:30 GLUCOSE POC LAB TO COLLECT [POC] QIDACANDBED 06/29/19 21:00 GLUCOSE POC LAB TO COLLECT [POC] QIDACANDBED 06/30/19 07:30 GLUCOSE POC LAB TO COLLECT [POC] QIDACANDBED 06/30/19 11:30 GLUCOSE POC LAB TO COLLECT [POC] QIDACANDBED 06/30/19 16:30 GLUCOSE POC LAB TO COLLECT [POC] QIDACANDBED 06/30/19 21:00 GLUCOSE POC LAB TO COLLECT [POC] QIDACANDBED 07/01/19 07:30 GLUCOSE POC LAB TO COLLECT [POC] QIDACANDBED 07/01/19 11:30 GLUCOSE POC LAB TO COLLECT [POC] QIDACANDBED 07/01/19 16:30 GLUCOSE POC LAB TO COLLECT [POC] QIDACANDBED 07/01/19 21:00 GLUCOSE POC LAB TO COLLECT [POC] QIDACANDBED 07/02/19 07:30 GLUCOSE POC LAB TO COLLECT [POC] QIDACANDBED 07/02/19 11:30 GLUCOSE POC LAB TO COLLECT [POC] QIDACANDBED - Plan Plan:: ASSESSMENT AND PLAN ABDOMINAL PAIN/ABDOMINAL WALL INFLAMMATION-been doing well after surgery 1 month ago when she developed more acute intense pain in the left abdomen. CT scan shows no intra-abdominal abnormality to explain pain. There is some evidence of inflammation in the abdominal wall but no obvious abscess or hematoma. -Surgical follow-up per Dr. Ji -Saline lock IV -Blood cultures -Empiric IV antibiotic therapy with vancomycin and Zosyn TYPE 1 DIABETES MELLITUS -Continue usual dose of Lantus insulin -4 times daily glucometers -Moderate dose sliding scale Humalog MAINTENANCE ISSUES -DVT prophylaxis; SCUDs -GI prophylaxis; not indicated -Jarquin catheter; not indicated -Nutrition; consistent carb diet -Nicotine dependence; not required CODE STATUS-FULL CODE ADMISSION STATUS-patient will be admitted to inpatient status, expect at least a 2 night hospital stay for evaluation and management of problems as outlined above. At the time of this admission I do not reasonably expected evaluation and management of this problem will require more than a 96 hour hospital stay. DISPOSITION-anticipate discharge to home after the hospital stay. PRIMARY CARE PROVIDER-Drs. Talavera
[2019-06-28] MEDS ORDERED: Insulin Glargine,Human Rec. Analog 100 Units/ML 3 ML Pen SUBCUT SCH (21:00)
[2019-06-29] MEDS: Piperacillin/Tazobactam/Dext 3.375 GM in Premix Bag 1 BAG IV SCH ×2 (01:42→07:39)
[2019-06-29 07:16] VITALS: BP 124/66; PULSE 79
[2019-06-29] MEDS ORDERED: Cyclobenzaprine 10 MG Tab PO PRN (07:42)
[2019-06-29] MEDS ORDERED: traMADol 50 MG Tab PO PRN (07:42)
[2019-06-29] MEDS: Insulin Lispro 100 Unit/ML 3 ML KwikPen SUBCUT SCH (07:44)
[2019-06-29] MEDS ORDERED: Celecoxib 200 MG Cap PO SCH (09:00)
--- NOTE | 2019-06-29 11:46 | DISCH ---
ADMISSION DIAGNOSES: 1. Abdominal pain. 2. Diabetes mellitus type 2. 3. Status post exploratory laparotomy with lysis of adhesion, resection of small bowel anastomosis involved in intussusception of the right colon, excision of nodule for sigmoid colon, and placement of Interceed mesh for cecal small-bowel obstruction secondary to intussusception of the small bowel. Date of surgery: 05/25/2019, and delayed primary closure on 05/27/2019. DISCHARGE DIAGNOSIS: 1. Persistent abdominal wall pain. 2. Diabetes type 1. HISTORY: Nydia had laparotomy with delayed primary closure on 05/25/2019 and 05/27/2019 respectively. She presented to the hospital with severe pain to the left of her midline incision. In the emergency department, she had a CT and was admitted for further evaluation by Dr. Renan García, hospitalist. The CT showed thickening of the abdominus rectus muscle bilaterally. Ultrasound showed rectus sheath thickening. She was treated with Zosyn and vancomycin and pain continued to show not a whole lot of improvement. She was discharged to home on 06/29/2019 with no complications. REVIEW OF SYSTEMS: CONSTITUTIONAL: Denies any fever, chills, night sweats, or fatigue. HEENT: Negative. NECK: Negative. HEART: No chest pain, shortness of breath, fast or irregular heart beat. LUNGS: No cough. ABDOMEN: Continues to have a burning hot sensation in left mid quadrant that radiates to her back. EXTREMITIES: Negative. No joint pain or swelling. NEUROLOGIC: No headaches, dizziness, loss of coordination. PSYCHIATRIC: Negative for any depression or anxiety. ENDOCRINE: Blood sugars she had in the past 24 hours were 258 and this morning it was 65. She has been on a sliding scale while in the hospital. Remainder of review of systems negative for any pertinent positives or negatives. PHYSICAL EXAMINATION: GENERAL: Nydia Faustin is a pleasant 59-year-old female. VITAL SIGNS: Height is 5 feet 1 inch, weight is 126 pounds, BMI is 24. TPR at 07:15, 96.9; 79; 16; blood pressure 124/66. HEENT: Negative. NECK: Supple. HEART: Regular rate and rhythm. LUNGS: Clear. ABDOMEN: Tenderness and a little bit of asymmetry is noted to the left of the incision, but that has been since surgery and it is minimally tender to palpate and she also has an area in her right upper quadrant that is tender. She has been wearing abdominal binder. EXTREMITIES: Without peripheral edema. DISPOSITION: Discharged to home. CONDITION: Stable and improving. FOLLOWUP: Appointment with Patric Ji MD, at [facility] on 07/04/2019 at 8 a.m. HOME MEDICATION: 1. Tylenol 650 mg every 4 hours p.r.n. pain. 2. Celebrex 200 mg oral b.i.d. #28. 3. Flexeril 10 mg oral q.6 hours p.r.n. muscle spasms. 4. Tramadol 50 mg oral q.4 hours p.r.n. severe pain #30. 5. She is to resume home medication of: a. Basaglar 16 units subcu at bedtime. b. NovoLog 0 to 15 units subcu as directed depending on her blood sugars. DIET AFTER DISCHARGE: Diabetic diet. Drink 8 to 10 glasses of water a day. ACTIVITY: As tolerated. No lifting over 10 pounds. Other activity: Walk as tolerated. May shower. Notify provider if any fever, pain, swelling, redness, nausea or vomiting. Work slip written that she is not to return to work due to the COVID virus as recommended by her employer. Total time of discharge, 20 minutes.
== END 2019-06-29 10:55 | disposition home or self-care (01) | DRG 251 ==
LOC: JP.ED 09:28 → JP.MS 12:35
PROVIDERS: ADMIT Hospitalist; ATTEND Hospitalist
DX: R10.9 Unspecified abdominal pain (principal); E10.9 Type 1 diabetes mellitus without complications
CPT/HCPCS: 36415; 74177; 74177-26; 76705; 76705-26; 80048; 80053; 81001; 82962; 83735; 85025; 86140; 87040; 96361; 96374; 96375; 99285-25; A9270-GY; J1170; J1815; J1815-GY; J2405; J2543; J3370; J7030; J7050; J7120; J7121; Q9967

== ENCOUNTER 2020-01-12 09:26 | Emergency (ER) | payer BC ==
[2020-01-12 09:53] VITALS: BP 117/68; PULSE 88
[2020-01-12] MEDS ORDERED: Lactated Ringers 1,000 ML IV ONE ×2 (10:23→11:07)
[2020-01-12] MEDS ORDERED: Acetaminophen 325 MG Tab PO PRN (10:50)
[2020-01-12] MEDS ORDERED: Ondansetron 4 MG/2 ML SDV IVPUSH ONE (10:53)
--- NOTE | 2020-01-12 10:55 | EDM.PDOC ---
ED HPI GENERAL MEDICAL PROBLEM - General Chief Complaint: General Stated Complaint: COVID POSSITIVE. 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 She states initially had no symptoms and then over the last couple days developed increasing nausea with diarrhea, she states the diarrhea has stopped she is able to get fluids down but because the nausea has not eaten much. States she has no respiratory difficulties - Related Data Allergies Allergy/AdvReac Type Severity Reaction Status Date / Time No Known Allergies Allergy Verified 01/12/20 09:54 Home Meds: Home Meds Insulin Aspart [NovoLOG] 0 - 15 unit SQ ASDIRECTED 08/26/13 [History] Insulin Glargine,Hum.Rec.Anlog [Basaglar Kwikpen U-100] 16 unit SQ BEDTIME 06/26/18 [History] Acetaminophen [Tylenol] 650 mg PO Q4H PRN tablet 06/29/19 [Rx] Past Medical History HEENT History: Reports: Impaired Vision Respiratory History: Reports: Croup Gastrointestinal History: Reports: Bowel Obstruction INSIGHTS MANAGER History: Reports: Ectopic , , Spontaneous Musculoskeletal History: Reports: Fracture Other Musculoskeletal History: jaw Endocrine/Metabolic History: Reports: Diabetes, Type I, IDDM Dermatologic History: Reports: None - Infectious Disease History Infectious Disease History: Reports: Chicken Pox, Influenza, Measles, Mumps, Novel Coronavirus, Pertussis (Whooping Cough), Shingles - Past Surgical History Head Surgeries/Procedures: Reports: None HEENT Surgical History: Reports: Oral Surgery, Other (See Below) Other HEENT Surgeries/Procedures: history of jaw fracture Cardiovascular Surgical History: Reports: None Respiratory Surgical History: Reports: None GI Surgical History: Reports: Appendectomy, Cholecystectomy, Colonoscopy, EGD, Lysis of Adhesions, Small Bowel, Other (See Below) Female Surgical History: Reports: Section, D&C, Hysterectomy, Salpingo-Oophorectomy, Tubal Ligation Endocrine Surgical History: Reports: None Musculoskeletal Surgical History: Reports: Other (See Below) Other Musculoskeletal Surgeries/Procedures:: history of left knee surgery as a young adult, meniscus repair secondary to gymnastic injury Social & Family History - Family History Family Medical History: Noncontributory - Tobacco Use Tobacco Use Status *Q: Never Tobacco User Second Hand Smoke Exposure: No - Caffeine Use Caffeine Use: Reports: None - Recreational Drug Use Recreational Drug Use: No ED ROS GENERAL - Review of Systems Review Of Systems: See Below Constitutional: Reports: Weakness HEENT: Reports: No Symptoms Respiratory: Reports: No Symptoms Cardiovascular: Reports: No Symptoms GI/Abdominal: Reports: Diarrhea, Flatus, Nausea. Denies: Abdominal Pain, Vomiting : Reports: No Symptoms ED EXAM, GENERAL - Physical Exam Exam: See Below Exam Limited By: No Limitations General Appearance: Alert, WD/WN, No Apparent Distress Respiratory/Chest: No Respiratory Distress, Lungs Clear, Normal Breath Sounds, No Accessory Muscle Use, Chest Non-Tender Cardiovascular: Regular Rate, Rhythm, No Murmur GI/Abdominal: Soft, Non-Tender Course - Vital Signs Last Recorded V/S: Last Vital Signs Temp 100 F 01/12/20 09:56 Pulse 88 01/12/20 09:56 Resp 16 01/12/20 09:56 BP 117/68 01/12/20 09:56 Pulse Ox 93 L 01/12/20 09:56 - Orders/Labs/Meds Orders: Active Orders 24 hr Category Date Time Status Isolation [COMM] Stat Oth 01/12/20 10:50 Ordered Labs: Laboratory Tests 01/12/20 01/12/20 01/12/20 Range/Units 10:02 10:02 10:02 WBC 3.9 L (4.5-11.0) K/uL RBC 4.16 (3.30-5.50) M/uL Hgb 11.9 L (12.0-15.0) g/dL Hct 36.6 (36.0-48.0) % MCV 88 (80-98) fL MCH 29 (27-31) pg MCHC 33 (32-36) % Plt Count 198 (150-400) K/uL Neut % (Auto) 73 H (36-66) % Lymph % (Auto) 19 L (24-44) % [place]elia % (Auto) 8 H (2-6) % Eos % (Auto) 0 L (2-4) % Baso % (Auto) 0 (0-1) % Sodium 135 L (140-148) mmol/L Potassium 4.2 (3.6-5.2) mmol/L Chloride 100 (100-108) mmol/L Carbon Dioxide 29 (21-32) mmol/L Anion Gap 10.2 (5.0-14.0) mmol/L BUN 8 (7-18) mg/dL Creatinine 1.0 D (0.6-1.0) mg/dL Est Cr Clr Drug Dosing 46.27 mL/min Estimated GFR (MDRD) 57 L (>60) Glucose 308 H (74-106) mg/dL Lactic Acid 1.7 (0.4-2.0) mmol/L Calcium 8.2 L (8.5-10.1) mg/dL Total Bilirubin 0.3 (0.2-1.0) mg/dL AST 21 (15-37) U/L ALT 23 (12-78) U/L Alkaline Phosphatase 72 (46-116) U/L Total Protein 6.4 (6.4-8.2) g/dL Albumin 2.8 L (3.4-5.0) g/dL Globulin 3.6 H (2.3-3.5) g/dL Albumin/Globulin Ratio 0.8 L (1.2-2.2) Urine Color (YELLOW) Urine Appearance (CLEAR) Urine pH (5.0-8.0) Ur Specific [place] (1.008-1.030) Urine Protein (NEGATIVE) mg/dL Urine Glucose (UA) (NEGATIVE) mg/dL Urine Ketones (NEGATIVE) mg/dL Urine Occult Blood (NEGATIVE) Urine Nitrite (NEGATIVE) Urine Bilirubin (NEGATIVE) Urine Urobilinogen (0.2-1.0) EU/dL Ur Leukocyte Esterase (NEGATIVE) Urine RBC (0-5) Urine WBC (0-5) Ur Epithelial Cells Amorphous Sediment Urine Bacteria Urine Mucus 01/12/20 Range/Units 11:23 WBC (4.5-11.0) K/uL RBC (3.30-5.50) M/uL Hgb (12.0-15.0) g/dL Hct (36.0-48.0) % MCV (80-98) fL MCH (27-31) pg MCHC (32-36) % Plt Count (150-400) K/uL Neut % (Auto) (36-66) % Lymph % (Auto) (24-44) % [place]elia % (Auto) (2-6) % Eos % (Auto) (2-4) % Baso % (Auto) (0-1) % Sodium (140-148) mmol/L Potassium (3.6-5.2) mmol/L Chloride (100-108) mmol/L Carbon Dioxide (21-32) mmol/L Anion Gap (5.0-14.0) mmol/L BUN (7-18) mg/dL Creatinine (0.6-1.0) mg/dL Est Cr Clr Drug Dosing mL/min Estimated GFR (MDRD) (>60) Glucose (74-106) mg/dL Lactic Acid (0.4-2.0) mmol/L Calcium (8.5-10.1) mg/dL Total Bilirubin (0.2-1.0) mg/dL AST (15-37) U/L ALT (12-78) U/L Alkaline Phosphatase (46-116) U/L Total Protein (6.4-8.2) g/dL Albumin (3.4-5.0) g/dL Globulin (2.3-3.5) g/dL Albumin/Globulin Ratio (1.2-2.2) Urine Color Yellow (YELLOW) Urine Appearance Clear (CLEAR) Urine pH 7.0 (5.0-8.0) Ur Specific [place] 1.015 (1.008-1.030) Urine Protein Negative (NEGATIVE) mg/dL Urine Glucose (UA) 250 H (NEGATIVE) mg/dL Urine Ketones Negative (NEGATIVE) mg/dL Urine Occult Blood Negative (NEGATIVE) Urine Nitrite Negative (NEGATIVE) Urine Bilirubin Negative (NEGATIVE) Urine Urobilinogen 0.2 (0.2-1.0) EU/dL Ur Leukocyte Esterase Negative (NEGATIVE) Urine RBC Not seen (0-5) Urine WBC Not seen (0-5) Ur Epithelial Cells Not seen Amorphous Sediment Not seen Urine Bacteria Not seen Urine Mucus Not seen Meds: Medications Discontinued Medications Generic Name Dose Route Start Last Admin Trade Name Freq PRN Reason Stop Dose Admin Acetaminophen 650 mg 01/12/20 10:50 Tylenol PO Q4H PRN Fever Greater Than 101 Lactated Ringer's 1,000 mls @ 999 mls/hr 10/17/20 10:23 01/12/20 10:26 Ringers, Lactated IV 01/12/20 11:23 999 mls/hr BOLUS ONE Administration Lactated Ringer's 1,000 mls @ 999 mls/hr 01/12/20 11:07 01/12/20 11:22 Ringers, Lactated IV 01/12/20 12:07 999 mls/hr BOLUS ONE Administration Lorazepam 0.5 mg 01/12/20 12:15 01/12/20 12:30 Ativan IVPUSH 01/12/20 12:16 0.5 mg ONETIME ONE Administration Ondansetron HCl 4 mg 01/12/20 10:53 01/12/20 11:00 Zofran IVPUSH 01/12/20 10:54 4 mg ONETIME ONE Administration Departure - Departure Time of Disposition: 07:02 Disposition: Home, Self-Care 01 Clinical Impression: Dehydration - Discharge Information Instructions: Dehydration, Adult, [id number] Referrals: PCP,None [Primary Care Provider] - Forms: ED Department Discharge Additional Instructions: Continue to push fluids try the Ativan as needed for nausea symptoms please followup with your primary care provider in 3-5 days if not better, please call return to the emergency department with worsening of symptoms. Sepsis Event Note (ED) - Evaluation Sepsis Screening Result: No Definite Risk - My Orders Last 24 Hours: My Active Orders 01/12/20 10:50 Isolation [COMM] Stat - Assessment/Plan Last 24 Hours: My Active Orders 01/12/20 10:50 Isolation [COMM] Stat Plan: Assessment Acuity = acute Site and laterality = weakness and diarrhea complicated patient with history of Covid 19 Etiology = complication of Covid Manifestations = symptoms above Location of injury = Home Lab values = WBC low at 3.9 consistent leukopenia glucose elevated 308 consistent with hyperglycemia lactic acid normal 1.7 urinalysis reveals 250 of glucose consistent with glucosuria Plan Good improvement with Ativan, Zofran provided no significant improvement in her nausea was able to be discharged to home follow-up primary care 3 to 5 days if not better. Prescription written for Ativan 1 mg p.o. 3 times daily as needed total #10 This note was dictated using [employer] voice recognition software please call with any questions on syntax or grammar.
[2020-01-12] MEDS ORDERED: LORazepam 2 MG/ML SDV IVPUSH ONE (12:15)
== END 2020-01-12 13:30 | disposition home or self-care (01) ==
LOC: JP.ED 09:26
DX: E86.0 Dehydration (principal); E10.9 Type 1 diabetes mellitus without complications
CPT/HCPCS: 36415; 80053; 81001; 83605; 85025; 96374; 96375; 99284; J2060; J2405; J7120; 99283

== ENCOUNTER 2022-06-15 08:51 | Inpatient (IN) | payer OTHER ==
[~2022-06-15 08:51] MED LIST changes: -Bupivacaine 0.5%/EPINEPHrine 1:200,000 50 ML MDV ONE; -Meropenem 500 MG SDV ONE
[2022-06-15] MEDS ORDERED: Dextrose 5%-Lactated Ringers 1,000 ML IV SCH (09:30)
[2022-06-15] MEDS ORDERED: Scopolamine 1.5 MG Transdermal Patch TOP SCH (09:30)
[2022-06-15] MEDS ORDERED: Lidocaine 1% with EPINEPHrine 1:100,000 50 ML MDV ONE (09:45)
[2022-06-15] MEDS ORDERED: Bupivacaine 0.5% 30 ML SDV ONE (09:45)
[2022-06-15] MEDS ORDERED: Meropenem 500 MG SDV ONE (09:49)
[2022-06-15] MEDS ORDERED: cefOXitin 2 GM in Sodium Chloride 0.9% 50 ML IV ONE (10:00)
[2022-06-15] MEDS ORDERED: Lactated Ringers 1,000 ML IV SCH (10:15)
[2022-06-15] MEDS ORDERED: Ketamine 15 MG in Sodium Chloride 0.9% 19.85 ML IV SCH (10:45)
[2022-06-15] MEDS ORDERED: Ropivacaine 30 ML, dexAMETHasone 8 MG, EPINEPHrine 0.4 MG, Sodium Chloride 0.9% 47.6 ML NERVRT SCH ×4 (10:45)
[2022-06-15] MEDS ORDERED: Ketamine 500 MG/5 ML MDV IV SCH (10:45)
[2022-06-15] MEDS ORDERED: diphenhydrAMINE 25 MG Cap PO PRN (10:47)
[2022-06-15] MEDS ORDERED: diphenhydrAMINE 50 MG/ML SDV IVPUSH PRN ×2 (10:47→16:00)
[2022-06-15] MEDS ORDERED: HYDROmorphone/Normal Saline 6 MG/30 ML PCA Vial IV PRN (10:47)
[2022-06-15] MEDS ORDERED: Naloxone 0.4 MG/ML SDV IVPUSH PRN (10:47)
[2022-06-15] MEDS ORDERED: Ondansetron 4 MG/2 ML SDV IVPUSH PRN (10:47)
[2022-06-15] MEDS ORDERED: Lactated Ringers 1,000 ML ONE (12:25)
[2022-06-15] MEDS ORDERED: Glucagon,Human Recombinant 1 MG Vial IM PRN (12:45)
[2022-06-15] MEDS ORDERED: Insulin Lispro 100 Unit/ML 3 ML KwikPen SUBCUT ONE (12:45)
[2022-06-15] MEDS ORDERED: 50% Dextrose in Water 50 ML Syringe IVPUSH PRN (12:45)
[2022-06-15] MEDS ORDERED: Cyclobenzaprine 10 MG Tab PO PRN (14:37)
[2022-06-15] MEDS ORDERED: hydrOXYzine HCl 50 MG/ML SDV IM PRN (16:00)
[2022-06-15] MEDS ORDERED: Labetalol 20 MG/4 ML Syringe IVPUSH PRN (16:00)
[2022-06-15] MEDS ORDERED: MVI, Adult with Vitamin K 10 ML, Thiamine 200 MG, Zinc/Copper/Manganese/Selenium 1 ML i... IV SCH ×4 (16:00)
[2022-06-15] MEDS ORDERED: Metoclopramide 10 MG/2 ML SDV IVPUSH PRN (16:00)
[2022-06-15] MEDS ORDERED: Acetaminophen 500 MG Tab PO PRN (16:00)
[2022-06-15] MEDS: Pantoprazole 40 MG Vial IVPUSH SCH (16:22)
[2022-06-15] MEDS: cefOXitin 2 GM in Sodium Chloride 0.9% 50 ML IV SCH ×2 (16:23→21:34)
[2022-06-15] MEDS: Insulin Lispro 100 Unit/ML 3 ML KwikPen SUBCUT SCH ×2 (17:34→19:49)
[2022-06-15] MEDS: Insulin Glargine,Human Rec. Analog 100 Units/ML 3 ML Pen SUBCUT SCH ×2 (17:34→19:47)
[2022-06-15] MEDS: Acetaminophen 500 MG Tab PO SCH (19:55)
[2022-06-15] MEDS: Heparin Sodium 5,000 Units/ML Vial SUBCUT SCH (19:55)
[2022-06-16] MEDS: Ondansetron 4 MG/2 ML SDV IVPUSH PRN (00:17)
[2022-06-16] MEDS: Lactated Ringers 1,000 ML IV SCH ×2 (00:17→07:51)
[2022-06-16] MEDS: Acetaminophen 500 MG Tab PO SCH ×3 (03:12→20:27)
[2022-06-16] MEDS: cefOXitin 2 GM in Sodium Chloride 0.9% 50 ML IV SCH ×4 (03:14→22:44)
[2022-06-16 05:16] LABS: ESTIMATED GFR 73 mL/min (>60)
[2022-06-16] MEDS: Insulin Lispro 100 Unit/ML 3 ML KwikPen SUBCUT SCH ×4 (08:07→20:29)
[2022-06-16] MEDS: Insulin Glargine,Human Rec. Analog 100 Units/ML 3 ML Pen SUBCUT SCH ×4 (08:07→20:30)
[2022-06-16] MEDS: SCOPOLAMINE PATCH CHECK TOP SCH (08:08)
[2022-06-16] MEDS: Heparin Sodium 5,000 Units/ML Vial SUBCUT SCH ×2 (08:08→20:28)
[2022-06-16] MEDS: Celecoxib 200 MG Cap PO SCH ×2 (08:08→20:28)
[2022-06-16] MEDS: Magnesium Sulfate/Water 2 GM in Premix Bag 1 BAG IV SCH ×3 (09:46→20:25)
[2022-06-16] MEDS: Pantoprazole 40 MG Vial IVPUSH SCH (15:40)
[2022-06-16] MEDS ORDERED: MVI, Adult with Vitamin K 10 ML, Thiamine 200 MG, Zinc/Copper/Manganese/Selenium 1 ML i... IV SCH ×4 (16:00)
[2022-06-17] MEDS: Lactated Ringers 1,000 ML IV SCH ×3 (03:06→19:14)
[2022-06-17] MEDS: Acetaminophen 500 MG Tab PO SCH ×3 (03:18→19:10)
[2022-06-17] MEDS: Magnesium Sulfate/Water 2 GM in Premix Bag 1 BAG IV SCH ×4 (03:21→21:16)
[2022-06-17] MEDS ORDERED: Lidocaine 1% with EPINEPHrine 1:100,000 50 ML MDV ONE (06:38)
[2022-06-17] MEDS ORDERED: Meropenem 500 MG SDV ONE (06:38)
[2022-06-17] MEDS ORDERED: Bupivacaine 0.5% 50 ML MDV ONE (06:38)
[2022-06-17] MEDS ORDERED: Propofol 200 MG/20 ML SDV ONE (07:09)
[2022-06-17] MEDS ORDERED: fentaNYL 100 MCG/2 ML SDV ONE (07:09)
[2022-06-17] MEDS ORDERED: Ropivacaine 30 ML, dexAMETHasone 8 MG, EPINEPHrine 0.4 MG, Sodium Chloride 0.9% 47.6 ML NERVRT SCH ×4 (07:45)
[2022-06-17] MEDS: Insulin Lispro 100 Unit/ML 3 ML KwikPen SUBCUT SCH ×5 (08:26→21:16)
[2022-06-17] MEDS: Insulin Glargine,Human Rec. Analog 100 Units/ML 3 ML Pen SUBCUT SCH ×2 (08:27→21:17)
[2022-06-17] MEDS: Ondansetron 4 MG/2 ML SDV IVPUSH PRN (09:07)
[2022-06-17] MEDS: Heparin Sodium 5,000 Units/ML Vial SUBCUT SCH ×2 (09:12→19:10)
[2022-06-17] MEDS: Celecoxib 200 MG Cap PO SCH ×2 (09:29→21:15)
[2022-06-17] MEDS: SCOPOLAMINE PATCH CHECK TOP SCH (09:30)
[2022-06-17] MEDS: Pantoprazole 40 MG Vial IVPUSH SCH (15:12)
[2022-06-17] MEDS ORDERED: Scopolamine 1.5 MG Transdermal Patch TRDERM PRN (19:57)
[2022-06-18] MEDS: Magnesium Sulfate/Water 2 GM in Premix Bag 1 BAG IV SCH ×4 (02:53→22:06)
[2022-06-18] MEDS: Lactated Ringers 1,000 ML IV SCH ×2 (04:59→15:05)
[2022-06-18] MEDS: Acetaminophen 500 MG Tab PO SCH ×3 (04:59→22:06)
[2022-06-18 05:04] LABS: ESTIMATED GFR 102 mL/min (>60)
[2022-06-18] MEDS: Insulin Lispro 100 Unit/ML 3 ML KwikPen SUBCUT SCH ×4 (08:03→22:34)
[2022-06-18] MEDS: Heparin Sodium 5,000 Units/ML Vial SUBCUT SCH ×2 (08:33→22:07)
[2022-06-18] MEDS: Celecoxib 200 MG Cap PO SCH ×2 (08:33→22:06)
[2022-06-18] MEDS: Pantoprazole 40 MG Tab.CR PO SCH (12:42)
[2022-06-18] MEDS: Insulin Glargine,Human Rec. Analog 100 Units/ML 3 ML Pen SUBCUT SCH (22:07)
[2022-06-19] MEDS: Acetaminophen 500 MG Tab PO SCH (04:49)
[2022-06-19] MEDS: Magnesium Sulfate/Water 2 GM in Premix Bag 1 BAG IV SCH (04:49)
[2022-06-19] MEDS: Lactated Ringers 1,000 ML IV SCH (04:50)
[2022-06-19] MEDS: Insulin Lispro 100 Unit/ML 3 ML KwikPen SUBCUT SCH (08:58)
[2022-06-19] MEDS: Pantoprazole 40 MG Tab.CR PO SCH (08:59)
[2022-06-19] MEDS: Heparin Sodium 5,000 Units/ML Vial SUBCUT SCH (09:02)
[2022-06-19] MEDS: Celecoxib 200 MG Cap PO SCH (09:02)
[2022-06-19 09:34] VITALS: BP 140/72; PULSE 82
== END 2022-06-19 10:30 | disposition home or self-care (01) | DRG 330 ==
LOC: JP.SDS 08:51 → JP.MS 12:35
PROVIDERS: ADMIT Surgery; ATTEND Surgery
PROC: 0DB80ZZ Excision of Small Intestine, Open Approach (ICD-10-PCS; principal; 2022-06-15)
PROC: 0DTF0ZZ Resection of Right Large Intestine, Open Approach (ICD-10-PCS; 2022-06-15)
PROC: 0WUF0JZ Supplement Abdominal Wall with Synthetic Substitute, Open Approach (ICD-10-PCS; 2022-06-15)
PROC: 0DBW0ZZ Excision of Peritoneum, Open Approach (ICD-10-PCS; 2022-06-15)
PROC: 0DS80ZZ Reposition Small Intestine, Open Approach (ICD-10-PCS; 2022-06-15)
PROC: 0WQF0ZZ Repair Abdominal Wall, Open Approach (ICD-10-PCS; 2022-06-17)
DX: K56.1 Intussusception (principal); K62.5 Hemorrhage of anus and rectum; K56.600 Partial intestinal obstruction, unspecified as to cause; K56.2 Volvulus; E10.9 Type 1 diabetes mellitus without complications; Z90.49 Acquired absence of other specified parts of digestive tract; Z90.710 Acquired absence of both cervix and uterus; Z98.890 Other specified postprocedural states; Z90.721 Acquired absence of ovaries, unilateral; Z98.51 Tubal ligation status; Z79.899 Other long term (current) drug therapy; Z79.4 Long term (current) use of insulin
CPT/HCPCS: 36415; 80053; 82728; 82947; 83735; 83880; 84100; 85025; 86850; 86900; 86901; 86920; 86922; 88305; 88307; A9270-GY; C9113; J0131; J0171; J0330; J0694; J1100; J1170; J1644; J1790; J1815; J1815-GY; J2020; J2185; J2405; J2704; J2710; J2795; J3010; J3411; J3475; J3490; J7120

== ENCOUNTER 2022-07-01 19:18 | Inpatient (IN) | payer OTHER ==
[2022-07-01] MEDS ORDERED: Sodium Chloride 0.9% 1,000 ML IV ONE ×2 (20:00→23:00)
[2022-07-01] MEDS ORDERED: HYDROmorphone 1 MG/ML Syringe IVPUSH ONE (20:07)
[2022-07-01] MEDS ORDERED: Ondansetron 4 MG/2 ML SDV IVPUSH ONE (20:08)
[2022-07-01 20:19] LABS: ESTIMATED GFR 52 mL/min (>60)
[2022-07-01] MEDS ORDERED: Sodium Chloride 0.9% 50 ML IV ONE (20:23)
[2022-07-01] MEDS ORDERED: Sodium Chloride 0.9% 10 ML Syringe FLUSH ONE (20:23)
[2022-07-01] MEDS ORDERED: Iopamidol 612 MG/ML 100 ML Bottle IV ONE (20:23)
[2022-07-01] MEDS ORDERED: Acetaminophen 1,000 MG in Premix Bag 1 BAG IV ONE (20:39)
[2022-07-01] MEDS ORDERED: Ketorolac 30 MG/ML SDV IVPUSH ONE (20:50)
[2022-07-01] MEDS ORDERED: Piperacillin/Tazobactam 3.375 GM in Sodium Chloride 0.9% 50 ML IV ONE (21:15)
[2022-07-01] MEDS ORDERED: Prochlorperazine 10 MG/2 ML SDV IVPUSH ONE (21:23)
[2022-07-01] MEDS ORDERED: Sodium Chloride 0.9% 1,000 ML IV SCH (21:30)
[2022-07-01 22:00] LABS: CORONAVIRUS COVID-19 NAA NEGATIVE (NEGATIVE)
[2022-07-01] MEDS ORDERED: Ondansetron 4 MG/2 ML SDV IV PRN (22:17)
[2022-07-01] MEDS ORDERED: Sodium Chloride 0.9% 500 ML IV ONE (22:24)
[2022-07-01] MEDS ORDERED: Prochlorperazine 10 MG/2 ML SDV IVPUSH PRN (22:25)
[2022-07-01] MEDS ORDERED: Piperacillin/Tazobactam 3.375 GM in Sodium Chloride 0.9% 50 ML IV SCH (22:30)
[2022-07-01] MEDS: Scopolamine 1.5 MG Transdermal Patch TOP SCH (23:45)
[2022-07-02] MEDS: Sodium Chloride 0.9% 1,000 ML IV SCH ×3 (00:29→19:35)
[2022-07-02] MEDS ORDERED: Piperacillin/Tazobactam 3.375 GM in Sodium Chloride 0.9% 50 ML IV ONE (03:00)
[2022-07-02] MEDS ORDERED: Piperacillin/Tazobactam 3.375 GM in Sodium Chloride 0.9% 50 ML IV SCH (03:00)
[2022-07-02 05:29] LABS: ESTIMATED GFR 64 mL/min (>60)
[2022-07-02] MEDS ORDERED: Insulin Lispro 100 Unit/ML 3 ML KwikPen SUBCUT ONE ×2 (05:49→16:34)
[2022-07-02] MEDS ORDERED: Glycopyrrolate 0.2 MG/ML 5 ML MDV ONE (08:22)
[2022-07-02] MEDS ORDERED: Ondansetron 4 MG/2 ML SDV ONE (08:22)
[2022-07-02] MEDS ORDERED: Neostigmine Methylsulfate 1 MG/ML 5 ML Syringe ONE (08:22)
[2022-07-02] MEDS ORDERED: Propofol 200 MG/20 ML SDV ONE (08:22)
[2022-07-02] MEDS ORDERED: Succinylcholine 200 MG/10 ML MDV ONE (08:22)
[2022-07-02] MEDS ORDERED: Rocuronium 50 MG/5 ML Vial ONE (08:22)
[2022-07-02] MEDS ORDERED: Dexamethasone 4 MG/ML SDV ONE (08:22)
[2022-07-02] MEDS ORDERED: fentaNYL 250 MCG/5 ML SDV ONE ×2 (08:24→12:15)
[2022-07-02 08:34] LABS: ESTIMATED GFR 57 mL/min (>60)
[2022-07-02] MEDS: Piperacillin/Tazobactam/Dext 3.375 GM in Premix Bag 1 BAG IV SCH ×3 (09:07→21:20)
[2022-07-02] MEDS ORDERED: Bupivacaine 0.5%/EPINEPHrine 1:200,000 50 ML MDV ONE (10:55)
[2022-07-02] MEDS ORDERED: Ropivacaine 30 ML, dexAMETHasone 8 MG, EPINEPHrine 0.4 MG, Sodium Chloride 0.9% 47.6 ML NERVRT SCH ×4 (11:00)
[2022-07-02] MEDS ORDERED: Lactated Ringers 1,000 ML ONE (12:18)
[2022-07-02] MEDS ORDERED: Scopolamine 1.5 MG Transdermal Patch ONE (12:23)
[2022-07-02] MEDS ORDERED: Acetaminophen 325 MG Tab PO PRN (14:03)
[2022-07-02] MEDS: Linezolid 600 MG in Premix Bag 1 BAG IV SCH (15:58)
[2022-07-02] MEDS: Insulin Lispro 100 Unit/ML 3 ML KwikPen SUBCUT SCH ×2 (16:57→21:10)
[2022-07-02] MEDS: HYDROmorphone 1 MG/ML Syringe IVPUSH PRN (19:31)
[2022-07-02] MEDS: Insulin Glargine,Human Rec. Analog 100 Units/ML 3 ML Pen SUBCUT SCH (21:10)
[2022-07-02] MEDS ORDERED: Insulin Lispro 100 Units/ML 3 ML Vial SUBCUT ONE (21:11)
[2022-07-02] MEDS ORDERED: 50% Dextrose in Water 50 ML Syringe IVPUSH PRN (21:11)
[2022-07-02] MEDS ORDERED: Glucagon,Human Recombinant 1 MG Vial IM PRN (21:11)
[2022-07-02] MEDS: CHECK PATCH TRDERM SCH (21:22)
[2022-07-03] MEDS: Linezolid 600 MG in Premix Bag 1 BAG IV SCH ×2 (02:11→16:00)
[2022-07-03] MEDS: Sodium Chloride 0.9% 1,000 ML IV SCH ×3 (02:13→20:01)
[2022-07-03] MEDS: HYDROmorphone 1 MG/ML Syringe IVPUSH PRN ×2 (02:32→08:00)
[2022-07-03] MEDS: Piperacillin/Tazobactam/Dext 3.375 GM in Premix Bag 1 BAG IV SCH ×4 (03:36→20:01)
[2022-07-03] MEDS: Insulin Lispro 100 Unit/ML 3 ML KwikPen SUBCUT SCH ×4 (08:05→22:23)
[2022-07-03] MEDS: Enoxaparin 40 MG/0.4 ML Syringe SUBCUT SCH (08:11)
[2022-07-03] MEDS: Acetaminophen/HYDROcodone 325-5 MG Tab PO PRN ×2 (14:11→22:30)
[2022-07-03] MEDS: Ibuprofen 600 MG Tab PO SCH ×2 (14:11→22:25)
[2022-07-03] MEDS: Insulin Glargine,Human Rec. Analog 100 Units/ML 3 ML Pen SUBCUT SCH (22:24)
[2022-07-03] MEDS: CHECK PATCH TRDERM SCH (22:30)
[2022-07-04] MEDS: Piperacillin/Tazobactam/Dext 3.375 GM in Premix Bag 1 BAG IV SCH ×4 (02:01→21:14)
[2022-07-04] MEDS: Linezolid 600 MG in Premix Bag 1 BAG IV SCH ×2 (02:45→15:43)
[2022-07-04] MEDS: Ibuprofen 600 MG Tab PO SCH ×3 (05:06→21:17)
[2022-07-04] MEDS: Acetaminophen/HYDROcodone 325-5 MG Tab PO PRN ×2 (05:07→18:09)
[2022-07-04] MEDS: Insulin Lispro 100 Unit/ML 3 ML KwikPen SUBCUT SCH ×4 (07:52→21:18)
[2022-07-04] MEDS: Enoxaparin 40 MG/0.4 ML Syringe SUBCUT SCH (09:07)
[2022-07-04] MEDS: Sodium Chloride 0.9% 1,000 ML IV SCH (09:18)
[2022-07-04] MEDS: Insulin Glargine,Human Rec. Analog 100 Units/ML 3 ML Pen SUBCUT SCH (21:19)
[2022-07-04] MEDS: CHECK PATCH TRDERM SCH (21:27)
[2022-07-04] MEDS: Scopolamine 1.5 MG Transdermal Patch TOP SCH (22:01)
[2022-07-05] MEDS: Piperacillin/Tazobactam/Dext 3.375 GM in Premix Bag 1 BAG IV SCH ×2 (02:40→09:35)
[2022-07-05] MEDS: Linezolid 600 MG in Premix Bag 1 BAG IV SCH (03:24)
[2022-07-05] MEDS: Ibuprofen 600 MG Tab PO SCH (05:16)
[2022-07-05 07:49] VITALS: BP 109/52; PULSE 88
[2022-07-05] MEDS: Insulin Lispro 100 Unit/ML 3 ML KwikPen SUBCUT SCH (07:50)
[2022-07-05] MEDS: Enoxaparin 40 MG/0.4 ML Syringe SUBCUT SCH (09:35)
== END 2022-07-05 11:25 | disposition home or self-care (01) | DRG 857 ==
LOC: JP.ED 19:18 → JP.MS 22:18
PROVIDERS: ADMIT Family Medicine; ATTEND Internal Medicine
PROC: 0W9F0ZZ Drainage of Abdominal Wall, Open Approach (ICD-10-PCS; principal; 2022-07-02)
DX: T81.40XA Infection following a procedure, unspecified, initial encounter (principal); L02.211 Cutaneous abscess of abdominal wall; Y83.8 Other surgical procedures as the cause of abnormal reaction of the patient, or of later complication, without mention of misadventure at the time of the procedure; E86.0 Dehydration; E11.9 Type 2 diabetes mellitus without complications; Z98.890 Other specified postprocedural states; Z90.710 Acquired absence of both cervix and uterus; Z90.49 Acquired absence of other specified parts of digestive tract; Z90.721 Acquired absence of ovaries, unilateral; Z79.899 Other long term (current) drug therapy; Z98.51 Tubal ligation status; Z79.4 Long term (current) use of insulin
CPT/HCPCS: 0241U; 36415; 36430; 74177; 80048; 80053; 82800; 82947; 83605; 85018; 85025; 85027; 86140; 86850; 86900; 86901; 86920; 86922; 87070; 87075; 87077; 87186; 87205; 99231; 99284; A9270-GY; J0131; J0171; J0330; J0780; J1100; J1170; J1650; J1815; J1815-GY; J1885; J2020; J2405; J2543; J2704; J2710; J2795; J3010; J3490; J7030; J7120; P9016; P9017; Q9967